=== PATIENT | male | born 1935 | race Caucasian/White ===

== ENCOUNTER → 2022-09-18 | Outpatient (CLI) | payer MEDICARE, OTHER, SELFPAY ==
[2022-09-18 16:39] LABS: Absolute Lymphocyte Count 1.32 X10^3/uL (0.83-4.51); Absolute Neutrophil Count 4.2 X10^3/uL (2.0-7.7); Basophil# 0.04 X10^3/uL; Basophil% 0.6 % (0-1); Eosinophil# 0.13 X10^3/uL; Eosinophils% 1.9 % (0-5); Hematocrit 38.7 % (40-54); Hemoglobin 11.7 g/dL (13.0-16.5); Lymphocyte # 1.32 X10^3/ul (0.83-4.51); Lymphocyte % 19.8 % (19-41); Mean Corp Hgb Conc 30.2 g/dL (32-36); Mean Corpuscular Hgb 25.4 pg (27.0-32.0); Mean Corpuscular Volume 84.1 fL (80-94); Mean Platelet Vol. 9.5 fl (6.2-12.0); Monocyte# 0.93 X10^3/uL; Monocyte% 13.9 % (0-10); NRBC Flagged by Analyzer 0 % (0-5); Neutrophil # 4.23 X10^3/uL (2.7-7.7); Neutrophil % 63.5 % (47-70); Platelet Count 289 K/mm3 (150-450); RBC Distribution Width CV 14.1 % (11.6-14.6); RBC Distribution Width SD 43.3 fl (35.1-43.9); White Blood Count 6.7 K/mm3 (4.4-11.0)
[2022-09-18 16:53] LABS: AST(SGOT) 22 U/L (15-37); Alanine Aminotransfer ALT/SGPT 30 U/L (16-61); Albumin, Serum 3.3 g/dL (3.2-5.0); Alkaline Phosphatase 78 U/L (45-117); Anion Gap 6 (5-15); BUN 23 mg/dL (7-18); BUN/Creat Ratio 18.9 RATIO (10-20); Chloride 107 mmol/L (98-107); Cholesterol 131 mg/dL (200); Creatinine, Serum 1.22 mg/dL (0.70-1.30); EST Glomerular Filtration Rate 60 mL/min (>60); Est Glom Filt Rate - Afr Amer 73 mL/min (>60); Globulin 3.4 g/dL (2.2-4.2); Glucose 134 mg/dL (74-106); High Density Lipoprotein 43 mg/dL; Potassium 4.6 mmol/L (3.5-5.1); Protein, Total 6.7 g/dL (6.4-8.2); Sodium Level 140 mmol/L (136-145); Triglycerides 112 mg/dL; Very Low Density Lipoprotein 22 mg/dL (5-40)
[2022-09-19 09:18] LABS: Ferritin 10 ng/mL (26-388); Iron 39 ug/dL (65-175); Iron Binding Capacity,Total 337 ug/dL (250-450)
== END | disposition home or self-care (01) ==
PROVIDERS: PCP Internal Medicine; Referring Provider Internal Medicine; Visit Provider Internal Medicine
DX: I25.10 Atherosclerotic heart disease of native coronary artery without angina pectoris (principal); D64.9 Anemia, unspecified; R73.9 Hyperglycemia, unspecified
CPT/HCPCS: 36415; 80053; 80061; 82728; 83036; 83540; 83550; 85025

== ENCOUNTER → 2022-10-27 | Outpatient (CLI) | payer MEDICARE, OTHER, SELFPAY ==
--- NOTE | 2022-10-27 10:39 | ECHOD_ITS ---
Reason For Study: CORONARY ARTERY DISEASE Procedure This was a 2D Doppler, Color Flow transthoracic echocardiogram. Exam performed in department. Left Ventricle Normal size and thickness. The left ventricular ejection fraction is 60 %. Right Ventricle Normal right ventricle. Atria The left and right atria are normal. Aneurysmal atrial septum. Bubble contrast study is negative for PFO/ASD. Mitral Valve Trivial mitral valve insufficiency. Tricuspid Valve Trivial tricuspid valve insufficiency. Normal pulmonary artery pressure. Aortic Valve Trisinus/trileaflet aortic valve. Mild diffuse aortic valve calcification. Mild aortic stenosis. Pulmonic Valve The pulmonic valve is not well visualized. Great Vessels Normal sized aortic root. Pericardium/Pleural No pericardial effusion. Medication 22 gauge I.V. with prn adaptor inserted into right arm. Performed a rapid injection of agitated mix of 9 cc saline and 1cc air to assess for atrial septal defect. MMode/2D Measurements & Calculations LVIDd: 3.3 cm IVSd: 1.1 cm LVOT diam: 2.2 cm LVIDs: 2.0 cm LVPWd: 0.86 cm RVDd: 4.3 cm FS: 39.1 % LVOT area: 3.7 cm2 Ao root diam: 3.5 cm LAV(MOD-bp): 57.8 ml LVAd ap4: 22.6 cm2 LAV(MOD-bp) Indexed: 30.1 ml/m2 LVLd ap4: 7.5 cm LAV(MOD-sp2): 56.3 ml EDV(MOD-sp4): 57.5 ml LAV(MOD-sp4): 57.5 ml EDV(sp4-el): 57.4 ml LVAs ap4: 12.8 cm2 LVLs ap4: 5.7 cm ESV(MOD-sp4): 24.4 ml ESV(sp4-el): 24.5 ml EF(MOD-sp4): 57.5 % EF(sp4-el): 57.4 % LVAd ap2: 22.7 cm2 SV(MOD-sp4): 33.1 ml SV(MOD-sp2): 37.5 ml LVLd ap2: 6.8 cm EDV(MOD-sp2): 58.8 ml EDV(sp2-el): 64.3 ml LVAs ap2: 12.2 cm2 LVLs ap2: 5.8 cm ESV(MOD-sp2): 21.4 ml ESV(sp2-el): 21.8 ml EF(MOD-sp2): 63.7 % SV(sp4-el): 33.0 ml LA dimension(2D): 4.2 cm LA A4 area: 19.7 cm2 RA A4 area: 11.0 cm2 Time Measurements MV dec time: 0.37 sec Doppler Measurements & Calculations MV E max anatoly: 56.4 cm/sec Lat Peak E' Anatoly: 9.8 cm/sec Med Peak E' Anatoly: 7.2 cm/sec MV A max anatoly: 92.2 cm/sec E/E' lat: 5.8 E/E' med: 7.8 MV E/A: 0.61 Ao V2 max: 184.7 cm/sec LV V1 max: 93.9 cm/sec MV dec slope: 154.3 cm/sec2 Ao max P.7 mmHg LV V1 max P.5 mmHg Ao V2 mean: 135.9 cm/sec LV V1 mean P.7 mmHg Ao mean P.2 mmHg LV V1 mean: 60.2 cm/sec Ao V2 VTI: 39.9 cm LV V1 VTI: 18.1 cm AV (velocity ratio): 0.45 BABLIR(I,D): 1.7 cm2 BALBIR(V,D): 1.9 cm2 SV(LVOT): 66.7 ml PA V2 max: 64.1 cm/sec PI end-d anatoly: 83.4 cm/sec TR max anatoly: 225.1 cm/sec TR max P.3 mmHg ECHO/Echo Complete Interpretation Summary The left ventricular ejection fraction is 60 %. Aneurysmal atrial septum. Bubble contrast study is negative for PFO/ASD. Mild aortic stenosis. Ordering Physician: Roel Millan Referring Physician: Ulices Mueller Performed By: Vandana Solis
== END | disposition home or self-care (01) ==
LOC: CVS 10:37
PROVIDERS: PCP Internal Medicine; Visit Provider Internal Medicine Cardiovascular Disease
DX: I25.10 Atherosclerotic heart disease of native coronary artery without angina pectoris (principal)
CPT/HCPCS: 93306; A4216

== ENCOUNTER 2023-05-19 14:51 | Emergency (ER) | payer OTHER, SELFPAY ==
[2023-05-19 14:52] VITALS: BP 146/79; PULSE 120; RESP 14; TEMP 36.6; O2SAT 98
[2023-05-19 14:55] VITALS: BMI 25.2
--- NOTE | 2023-05-19 15:13 | CT_ITS ---
STUDY: CT Abdomen And Pelvis W/ Contrast Injection 05/19/2023 4:16 PM REASON FOR EXAM: Male, 88 years old. Abdominal pain abd pain Individualized dose optimization techniques were used for this CT. COMPARISON: None. TECHNIQUE: CT Abdomen And Pelvis W/ Contrast Injection IV 100mL [id number] FINDINGS: There are atherosclerotic calcifications of visualized coronary arteries. The visualized portions of the heart are within normal limits. Pneumobilia. Simple appearing cyst of the right lobe of the liver. There is dilation of the common bile duct. A common bile duct stone is not seen. The CBD diameter is 16 mm. There are surgical clips in the gallbladder fossa consistent with a prior cholecystectomy. Benign-appearing cyst of the spleen. Normal pancreas. Normal bilateral adrenal glands. Non obstructive 2 mm right renal parenchymal stones. No acute findings of the left kidney. Normal visualized stomach. Normal small intestine. There are multiple colonic diverticula consistent with diverticulosis. Duodenal jejunal anastomosis. At this level there is evidence for intussusception. Presently, there is no obstruction. Series 601 image 46. The target sign visualized on series 602 image 96. The appendix is visualized and appears normal. There are calcifications of the abdominal aorta. This is consistent for atherosclerotic disease. There is NO abdominal aortic aneurysm. Vascular workup can be obtained based on clinical correlation. Normal inferior vena cava. Subcentimeter mesenteric lymph nodes. Normal urinary bladder. Rectosigmoid anastomosis. Epigastric ventral hernia containing fat. Total right hip arthroplasty. CT/Abdomen/Pelvis W IV Cont ONLY IMPRESSION: (NOT LISTED IN ORDER OF SIGNIFICANCE) Duodenal jejunal anastomosis. At this level there is evidence for intussusception. Presently, there is no obstruction. A prospective or current developing event such as an obstruction developing during the study and not visible or immediately after cannot be excluded. Surveillance may be warranted in individuals with intussusception. There are surgical clips in the gallbladder fossa consistent with a prior cholecystectomy. There is dilation of the common bile duct. A common bile duct stone is not seen. The CBD diameter is 16 mm. Other findings as above. Electronically Signed: Ti Chavez MD at 16:21 EDT ,
--- NOTE | 2023-05-19 15:16 | ED.VIS.GI ---
HPI HPI - GI History of Present Illness Chief Complaint: Abd Pain Detail of Chief Complaint: Epigastric pain. Informant: patient and family Abdominal Pain/Flank Pain Onset: Today Timing: Continuous Quality: Sharp and Stabbing Location: Epigastric Current Severity: Mild Maximum Severity: Moderate Nausea/Vomiting/Emesis GI Symptom: Positive for Nausea and Vomiting Onset: Today Severity: Mild Diarrhea/Melena/Hematochezia GI Symptom: Positive for Diarrhea; Negative for Melena or Hematochezia Stool Quality: Positive for Loose Severity: Mild Associated Symptoms Associated Symptoms: Negative for Dysuria, Frequency, Hematuria or Urgency Narrative Narrative: 88-year-old male history of A-fib on Eliquis, anemia, [place]. Has had a cholecystectomy, appendectomy and partial colectomy. States he has chronic abdominal pains worse today with associated nausea, vomiting and diarrhea. No fever. No dysuria. No melena. Even after having his gallbladder out he continues to pass stones and has had a ERCP procedures done at [facility] in [place]. He said this feels similar. Prior similar symptoms: Yes Recent Illness/Hospitalization: No PFSH PFSH Medical History Anemia Atrial fibrillation Borderline type 2 diabetes mellitus BPH (benign prostatic hyperplasia) CAD (coronary artery disease) Essential (primary) hypertension Gastric ulcer History of arthritis History of back problems History of CVA (cerebrovascular accident) History of hearing problem History of heart disease History of liver disease History of melanoma History of pneumonia Hx of carpal tunnel syndrome Hx of gallstones Hx of gastric ulcer Hx of gastroesophageal reflux (GERD) Hx of hypotension Hx of irritable bowel syndrome Hx of seasonal allergies Hx of ulcer disease Hyperglycemia Hyperlipidemia NSTEMI (non-ST elevated myocardial infarction) (~04/07/19) Peptic ulcer disease TIA (transient ischemic attack) Vitamin D deficiency Wears glasses Home Medications apixaban 5 mg tablet (Eliquis) 5 mg PO BID 08/31/22 [History Last Taken Unknown] atorvastatin 80 mg tablet 80 mg PO DAILY 08/31/22 [History Last Taken Unknown] cholecalciferol (vitamin D3) 50 mcg (2,000 unit) capsule 50 mcg PO DAILY 08/31/22 [History Last Taken Unknown] docusate sodium 100 mg capsule 100 mg PO BID 08/31/22 [History Last Taken Unknown] ezetimibe 10 mg tablet 10 mg PO DAILY 08/31/22 [History Last Taken Unknown] gabapentin 400 mg capsule 400 mg PO BID 08/31/22 [History Last Taken Unknown] hydrocodone-acetaminophen 5-325mg 5mg-325mg 1 tab PO Q6H PRN 08/31/22 [History Last Taken Unknown] mecobalamin (vitamin B12) 1,000 mcg chewable tablet 1,000 mcg PO DAILY 08/31/22 [History Last Taken Unknown] melatonin 3 mg capsule 9 mg PO HS PRN 08/31/22 [History Last Taken Unknown] metoprolol tartrate 50 mg tablet 50 mg PO BID 08/31/22 [History Last Taken Unknown] omeprazole 20 mg capsule,delayed release 20 mg PO BID 08/31/22 [History Last Taken Unknown] tamsulosin 0.4 mg capsule 0.4 mg PO BID 08/31/22 [History Last Taken Unknown] tramadol 50 mg tablet 50 mg PO Q6H PRN 08/31/22 [History Last Taken Unknown] ferrous sulfate 325 mg (65 mg iron) tablet 325 mg PO DAILY #90 tabs 09/19/22 [Rx Last Taken Unknown] Allergy/AdvReac Type Severity Reaction Status Date / Time Penicillins AdvReac Intermediate RASH Verified 05/19/23 14:52 Family History Father Myocardial infarction, Onset Age: 75 Brother Myocardial infarction, Onset Age: 55 Sister Myocardial infarction, Onset Age: 72 Surgical History History of gastric surgery History of partial gastrectomy Hx of angioplasty (~2017) Hx of appendectomy Hx of cardiac catheterization (~12/02/21) Hx of cataract removal with insertion of prosthetic lens Hx of cholecystectomy Hx of colectomy Hx of heart surgery Hx of inguinal hernia repair Hx of joint replacement Social History Smoking Status: Former smoker quit date: 01/01/1967 pack-years: 10 alcohol intake: former substance use type: does not use caffeine: Yes Type: coffee Number of servings: 2 ROS ROS ED ROS Narrative Abdominal pain. Nausea, vomiting, diarrhea. Constitutional Constitutional ED: Denies chills or fever(s) ENT ENT ED: Denies ear pain Cardiovascular Cardiovascular: Denies chest pain Respiratory/Chest Respiratory/Chest: Denies cough or dyspnea Gastrointestinal Gastrointestinal: Reports abdominal pain, diarrhea, nausea and vomiting; Denies constipation or melena Genitourinary Genitourinary ED: Denies dysuria or hematuria Musculoskeletal Musculoskeletal: Denies arthralgias Integumentary Denies abscess Neurologic Neurologic: Denies headache(s) Psychiatric Psychiatric: Denies anxiety Endocrine Endocrinology: Denies polydipsia Hematologic/Lymphatic Hematologic/Lymphatic: Denies easy bleeding Allergic/Immunologic Allergic/Immunologic ED: Denies mouth swelling EXAM Physical Exam Narrative Exam Narrative: Is a-year-old male no acute distress. Vital signs stable afebrile does not appear toxic. No distress. Son at bedside. H EENT exam mildly dry mucous membranes. Neck nontender. Lungs clear. Heart regular rate and rhythm rate about 100. No murmur. Chest wall nontender. Abdomen soft, nondistended normal bowel sounds no peritoneal signs. Mild epigastric tenderness. No Polanco sign. No McBurney's point tenderness. No signs of obstruction. No pulsatile mass. Patient moving all 4 extremities. Nontender no edema. Patient is awake and alert. Const Vital Signs: 05/19/23 14:52 05/19/23 16:27 05/19/23 18:00 Temperature 97.8 F Temperature Source Temporal Pulse Rate 120 H 94 Respiratory Rate 14 16 Blood Pressure 146/79 H 146/70 H Blood Pressure Mean 101 95 Pulse Ox 98 97 Oxygen Delivery Method Room Air Room Air 05/19/23 18:41 Temperature Temperature Source Pulse Rate 87 Respiratory Rate 22 H Blood Pressure 140/96 H Blood Pressure Mean 110 Pulse Ox 97 Oxygen Delivery Method Room Air Positive well nourished and well developed; Negative for obese, cachectic, contractures or unkempt General Appearance ED: well developed and NAD; Negative for unkempt, cachectic, contractures or pallor Nutritional Appearance: Negative for cachectic or obese HEENT Reports dry mucous membranes normocephalic and atraumatic; Negative for trauma or tenderness Mouth ED: Yes dry mucous membranes Mouth: dry mucous membranes Eyes EOMs intact bilaterally General Eye ED: Negative for pale conjunctiva or scleral icterus Neck no lymphadenopathy, supple and no JVD General: Negative for tenderness Carotids: Negative for other Lymph Lymphatic: Negative for other Resp normal respiratory effort and clear to auscultation bilaterally Effort and Inspection: Negative for respiratory distress or retractions Auscultation: Negative for rales, rhonchi or wheezes Cardio regular rate, regular rhythm, S1 normal heart sound, S2 normal heart sound and no murmurs GI non-distended and no masses; Negative for non-tender Inspection: Negative for abdominal distention Auscultation: normoactive bowel sounds Palpation: soft and tender; Negative for guarding, rigid, hepatomegaly, splenomegaly, hernia, mass, pulsatile mass or rebound tenderness present Back/Spine no CVA tenderness General Back: Negative for CVA tenderness Cervical Spine: Negative for cervical spine tenderness Thoracic Spine / Upper Back: Negative for thoracic spinal tenderness Lumbar Spine / Lower Back: Negative for lumbar spinal tenderness Extremity full ROM General Extremety ED: Negative for edema or tenderness General Extremity: Negative for edema Neuro CN's II-XII intact bilaterally and moves all extremities Sensorium / Orientation: alert, oriented to person, oriented to place and oriented to time; Negative for orientation impaired, confused, lethargic or stuporous Motor Exam: strength 5/5 throughout Psych mental status grossly normal and thought process normal Appearance: Negative for unkempt Attitude: No agitated Mood & Affect: Negative for depressed, anxious or tearful Skin no wounds General Skin Exam: Negative for jaundice or pallor Lesions: no lesions Rashes: no rashes Trauma: Negative for abrasion MDM MDM MDM Narrative Medical decision making narrative: 88-year-old male with acute on chronic abdominal pain with a history of biliary stones even identifies gallbladder removed. Screening labs and a CAT scan will be obtained. He does not have a surgical abdomen. To be treated with morphine for pain and Zofran for nausea. We were able to obtain a CAT scan of the abdomen pelvis from [facility] in [place]. The general surgeon on-call Dr. Hollie Romero reviewed that CAT scan with today's and there is no change. She is comfortable the patient being discharged home. She does not believe there is any type of intussusception at this time. Follow-up History & Record Review Discussion w/independent historian: Patient and Family Lab Data Attestation: I reviewed the patient's lab results. Lab results narrative: CBC shows a white count of 12.9. H&H 13.7 and 42. Platelets 213. Chemistries are unremarkable gap of 7. Normal BUN and creatinine of 14 and 1.2. Glucose 145. Liver enzymes are normal. Amylase and lipase are both normal at 38 and 13. Labs: Laboratory Results - last 24 hr 05/19/23 15:10 WBC 12.9 H RBC 5.04 Hgb 13.7 Hct 42.1 MCV 83.5 MCH 27.2 MCHC 32.5 RDW Std Deviation 41.6 RDW Coeff of José Miguel 13.7 Plt Count 213 MPV 9.2 Immature Gran % (Auto) 0.500 Neut % (Auto) 80.0 H Lymph % (Auto) 3.1 L Sebastian % (Auto) 12.1 H Eos % (Auto) 4.0 Baso % (Auto) 0.3 Absolute Neuts (auto) 10.3 H Absolute Lymphs (auto) 0.40 L Nucleated RBC % 0 Differential Comment SCANNED Diff Path Review May foll Sodium 138 Potassium 3.7 Chloride 107 Carbon Dioxide 24.0 Anion Gap 7 BUN 14 Creatinine 1.20 Estim Creat Clear Calc 45.63 Est GFR (MDRD) Af Amer 74 Est GFR (MDRD) Non-Af 61 BUN/Creatinine Ratio 11.7 Glucose 145 H Calcium 8.9 Total Bilirubin 0.80 AST 24 ALT 33 Alkaline Phosphatase 85 Total Protein 6.8 Albumin 3.3 Globulin 3.5 Albumin/Globulin Ratio 0.9 Amylase 38 Lipase 13 Radiography Diagnostic Testing: Clinical Impression(s) from Imaging Studies Abdomen/Pelvis CT 05/19/23 15:13 IMPRESSION: (NOT LISTED IN ORDER OF SIGNIFICANCE) Duodenal jejunal anastomosis. At this level there is evidence for intussusception. Presently, there is no obstruction. A prospective or current developing event such as an obstruction developing during the study and not visible or immediately after cannot be excluded. Surveillance may be warranted in individuals with intussusception. There are surgical clips in the gallbladder fossa consistent with a prior cholecystectomy. There is dilation of the common bile duct. A common bile duct stone is not seen. The CBD diameter is 16 mm. Other findings as above. Electronically Signed: Ti Chavez MD at 16:21 EDT , Discharge Plan Triage Chief Complaint: Abd Pain ED Provider: Daryl Roldan Dx/Rx/DC Orders Clinical Impression: History of partial gastrectomy, Hx of cholecystectomy, History of atrial fibrillation, Abdominal pain Instructions: Abdominal Pain Prescriptions: No Action Eliquis 5 mg tablet 5 mg PO BID mecobalamin (vitamin B12) 1,000 mcg tablet,chewable 1,000 mcg PO DAILY cholecalciferol (vitamin D3) 50 mcg (2,000 unit) capsule 50 mcg PO DAILY docusate sodium 100 mg capsule 100 mg PO BID omeprazole 20 mg capsule,delayed release(DR/EC) 20 mg PO BID gabapentin 400 mg capsule 400 mg PO BID tramadol 50 mg tablet 50 mg PO Q6H PRN hydrocodone-acetaminophen 5-325 mg tablet 1 tab PO Q6H PRN atorvastatin 80 mg tablet 80 mg PO DAILY melatonin 3 mg capsule 9 mg PO HS PRN tamsulosin 0.4 mg capsule 0.4 mg PO BID ezetimibe 10 mg tablet 10 mg PO DAILY metoprolol tartrate 50 mg tablet 50 mg PO BID ferrous sulfate 325 mg (65 mg iron) tablet 325 mg PO DAILY Qty: 90 1RF Primary Care Provider: Ulices Mueller Referrals: Ulices Mueller MD [Primary Care Provider] - 3-5 Days if not improving Activity Restrictions/Additional Instructions: We were able to compare your CAT scan tonight to 1 at [facility] a year ago. There is no significant change. The general surgeon is comfortable with you being discharged home with outpatient follow-up with your primary care physician as needed. Disposition Disposition: Home, Self Care
[2023-05-19] MEDS: Ondansetron 4 MG/2 ML Vial IV ×2 (15:25→20:25)
[2023-05-19] MEDS: 0.9% Normal Saline 1,000 ML 1000 ML IV (15:25)
[2023-05-19] MEDS: morphine 8 MG/ML Syringe 6 MG IV (15:26)
[2023-05-19 15:27] LABS: Absolute Neutrophil Count 10.3 X10^3/uL (2.0-7.7); Basophil# 0.04 X10^3/uL; Basophil% 0.3 % (0-1); Eosinophil# 0.52 X10^3/uL; Hematocrit 42.1 % (40-54); Hemoglobin 13.7 g/dL (13.0-16.5); Lymphocyte % 3.1 % (19-41); Mean Corp Hgb Conc 32.5 g/dL (32-36); Mean Corpuscular Hgb 27.2 pg (27.0-32.0); Mean Corpuscular Volume 83.5 fL (80-94); Mean Platelet Vol. 9.2 fl (6.2-12.0); Monocyte# 1.56 X10^3/uL; Monocyte% 12.1 % (0-10); NRBC Flagged by Analyzer 0 % (0-5); Neutrophil # 10.29 X10^3/uL (2.7-7.7); POSITIVE DIFFERENTIAL YES; Platelet Count 213 K/mm3 (150-450); RBC Distribution Width CV 13.7 % (11.6-14.6); RBC Distribution Width SD 41.6 fl (35.1-43.9); Red Blood Count 5.04 M/mm3 (4.6-6.2); White Blood Count 12.9 K/mm3 (4.4-11.0)
[2023-05-19 15:46] LABS: ALB/GLOB Ratio 0.9 RATIO (0.9-2.4); AST(SGOT) 24 U/L (15-37); Alanine Aminotransfer ALT/SGPT 33 U/L (16-61); Albumin, Serum 3.3 g/dL (3.2-5.0); Alkaline Phosphatase 85 U/L (45-117); Amylase 38 U/L (25-115); Anion Gap 7 (5-15); BUN 14 mg/dL (7-18); BUN/Creat Ratio 11.7 RATIO (10-20); Calcium,Total 8.9 mg/dL (8.5-10.1); Chloride 107 mmol/L (98-107); EST Glomerular Filtration Rate 61 mL/min (>60); Est Glom Filt Rate - Afr Amer 74 mL/min (>60); Estimated Creatinine Clearance 45.63 ml/min; Globulin 3.5 g/dL (2.2-4.2); Glucose 145 mg/dL (74-106); Lipase 13 U/L (13-75); Potassium 3.7 mmol/L (3.5-5.1); Protein, Total 6.8 g/dL (6.4-8.2); Sodium Level 138 mmol/L (136-145)
[2023-05-19 15:57] LABS: Differential Indicated SCAN CRITERIA MET
[2023-05-19 15:58] LABS: Differential Comment SCANNED
[2023-05-19 16:27] VITALS: BP 146/70
[2023-05-19 18:00] VITALS: PULSE 94; RESP 16; O2SAT 97
[2023-05-19 18:41] VITALS: BP 140/96; PULSE 87; RESP 22; O2SAT 97
[2023-05-19] MEDS: Morphine 4 MG/ML Syringe IV (20:25)
[2023-05-19 21:04] VITALS: RESP 20
[2023-05-22 15:28] LABS: Pathologist Review Reviewed
== END 2023-05-19 21:06 | disposition home or self-care (01) ==
PROVIDERS: Emergency Provider Emergency Medicine; PCP Internal Medicine; Visit Provider Emergency Medicine
DX: R10.13 Epigastric pain (principal); I48.91 Unspecified atrial fibrillation; R11.2 Nausea with vomiting, unspecified; G89.29 Other chronic pain; I10 Essential (primary) hypertension; I25.10 Atherosclerotic heart disease of native coronary artery without angina pectoris; R19.7 Diarrhea, unspecified; E78.5 Hyperlipidemia, unspecified; Z79.01 Long term (current) use of anticoagulants; Z79.899 Other long term (current) drug therapy; Z87.891 Personal history of nicotine dependence; Z90.49 Acquired absence of other specified parts of digestive tract
CPT/HCPCS: 74177; 80053; 82150; 83690; 85025; 96361; 96374; 96375; 96376; 99283; J7030; Q9967; A4216; J2405

== ENCOUNTER → 2023-07-05 | Outpatient (CLI) | payer MEDICARE, OTHER, SELFPAY ==
[2023-07-05 12:04] LABS: Cholesterol 122 mg/dL (200); High Density Lipoprotein 45 mg/dL; Triglycerides 95 mg/dL; Very Low Density Lipoprotein 19 mg/dL (5-40)
== END | disposition home or self-care (01) ==
PROVIDERS: PCP Internal Medicine; Referring Provider Internal Medicine Cardiovascular Disease; Visit Provider Internal Medicine Cardiovascular Disease
DX: E78.5 Hyperlipidemia, unspecified (principal); I25.10 Atherosclerotic heart disease of native coronary artery without angina pectoris; I35.0 Nonrheumatic aortic (valve) stenosis
CPT/HCPCS: 36415; 80061

== ENCOUNTER → 2023-12-03 | Outpatient (CLI) | payer MEDICARE, OTHER, SELFPAY ==
[2023-12-03 12:37] LABS: Absolute Lymphocyte Count 1.32 X10^3/uL (0.83-4.51); Basophil# 0.06 X10^3/uL; Basophil% 0.9 % (0-1); Eosinophils% 3.1 % (0-5); Hematocrit 41.9 % (40-54); Lymphocyte # 1.32 X10^3/ul (0.83-4.51); Lymphocyte % 20.2 % (19-41); Mean Corpuscular Hgb 26.5 pg (27.0-32.0); Mean Corpuscular Volume 85.5 fL (80-94); Mean Platelet Vol. 9.4 fl (6.2-12.0); Monocyte# 0.93 X10^3/uL; Monocyte% 14.2 % (0-10); NRBC Flagged by Analyzer 0 % (0-5); Neutrophil # 4.02 X10^3/uL (2.7-7.7); Neutrophil % 61.3 % (47-70); Platelet Count 285 K/mm3 (150-450); RBC Distribution Width CV 14.8 % (11.6-14.6); RBC Distribution Width SD 46.4 fl (35.1-43.9); White Blood Count 6.6 K/mm3 (4.4-11.0)
[2023-12-03 12:43] LABS: AST(SGOT) 16 U/L (15-37); Alanine Aminotransfer ALT/SGPT 28 U/L (16-61); Albumin, Serum 3.4 g/dL (3.2-5.0); Alkaline Phosphatase 85 U/L (45-117); Anion Gap 3 (5-15); BUN 16 mg/dL (7-18); BUN/Creat Ratio 13.6 RATIO (10-20); Chloride 109 mmol/L (98-107); Cholesterol 176 mg/dL (200); Creatinine, Serum 1.18 mg/dL (0.70-1.30); EST Glomerular Filtration Rate 62 mL/min (>60); Est Glom Filt Rate - Afr Amer 75 mL/min (>60); Globulin 3.4 g/dL (2.2-4.2); Glucose 99 mg/dL (74-106); High Density Lipoprotein 48 mg/dL; PSA,Total - Annual Screen 0.62 ng/mL (0.00-4.00); Potassium 4.5 mmol/L (3.5-5.1); Protein, Total 6.8 g/dL (6.4-8.2); Sodium Level 140 mmol/L (136-145); Triglycerides 146 mg/dL; Very Low Density Lipoprotein 29 mg/dL (5-40)
== END | disposition home or self-care (01) ==
LOC: BIMLAB 10:47
PROVIDERS: PCP Internal Medicine; Referring Provider Internal Medicine; Visit Provider Internal Medicine
DX: I25.10 Atherosclerotic heart disease of native coronary artery without angina pectoris (principal); I10 Essential (primary) hypertension; N40.0 Benign prostatic hyperplasia without lower urinary tract symptoms
CPT/HCPCS: 36415; 80053; 80061; 82248; 84153; 85025; G0103

== ENCOUNTER 2024-01-02 16:11 | Inpatient (IN) | payer OTHER, SELFPAY ==
[2023-12-27 14:13] LABS: Hemoglobin A1c 5.7 % (3.8-5.6)
[2024-01-02] VITALS (31 sets, daily range): BP systolic 84–189; BP diastolic 58–111; PULSE 87–142; RESP 16–37; TEMP 36.3–45.5; O2SAT 92–100; BMI 24.3; BMI 24.9
--- NOTE | 2024-01-02 | HERN_PTH ---
PATIENT: DESIREE CALIXTO LOC: [id number] U#:[id number] AGE/SX: 88/M ROOM: OK318 RE01/03/[address]: Dr. Bob Neal MD : [id number] BED: 1 DIS: 01/04/2024 SPEC #: [id number] RECD: 01/02/24 18:06 STATUS: RAYSHAWN RE #: [id number] PACHECO: 01/02/24 00:[address]: Bob Neal DEPT: SURGICAL PATHOLOGY RECD BY: Lawson White ENTERED: 01/03/24 10:07 SP TYPE: Hernia OTHR DR: MD Dr. Shahriar Hernandez MD Dr. Derek Brown, DO Dr. Eric Jopperi, DO Dr. Efewongbe Oleghe, MD Dr. Gautam Baskaran, MD Dr. Yordanos Habtegebriel, MD Dr. Hemant Dand, MD Dr. Kimber Foust, MD Dr. Lamia Aljundi, MD Dr. Pavan Irukulla, MD Dr. Saad Farooqi, MD Dr. Vikram Anand, MD Dr. William Haden, MD Tissues: A - LIPOMA OF CORD B - HERNIA Procedures: Surgery Specimen Level II Surgery Specimen Level III HEADER OPERATION: Hernia. Open inguinal with mesh PRE-OP DIAGNOSIS: Left inguinal hernia, incisional hernia TISSUE SUBMITTED: A- Left cord lipoma, B- Left inguinal hernia sac MICROSCOPIC DIAGNOSIS A. Left cord lipoma, excision; Mature adipose tissue, consistent with lipoma. B. Left inguinal hernia sac; A piece of fibroadipose and fibroconnective tissue, consistent with hernia sac. / 01/04/2024 MICROSCOPIC DESCRIPTION Slides are reviewed. GROSS DESCRIPTION A. Received in fixative is one container labeled with the patient's name and designated Left cord lipoma. The specimen consists of an irregular fragment pacheco-yellow fatty tissue measuring 4.0x4.0x1.0cm. Serial sections reveal homogeneous yellow cut surfaces. P[employer] Worker sections are submitted in one cassette. B. Received in fixative is one container labeled with the patient's name and designated Left inguinal hernia sac. The specimen consists of irregular fragment of yellow-pacheco fibrofatty tissue measuring 5.5x2.0x0.3cm. Serial sections do not reveal mass lesions. Poultry Process Worker sections are submitted in one cassette. / 01/03/2024 TC:5 CPT: 67406,85655
[2024-01-02] MEDS: Lactated Ringers 1,000 ML 15 ML IV (12:34)
--- NOTE | 2024-01-02 13:55 | PCM.HP.BLA ---
History and Physical Date of Admission: 01/02/24 Date of Service: 12/14/23 MR#: [id number] Acct: [id number] Name: DESIREE CALIXTO Rep #: [id number] : 1935 Provider: Dr. Bob Neal MD Age/Sex: 88/M Location: 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: No Is patient in pain?: Yes (left groin) Allergies Penicillins Adverse Reaction (Intermediate, Verified 12/14/23 13:22) RASH Medications apixaban 5 mg tablet (Eliquis) 5 mg PO BID 08/31/22 [History Confirmed 12/14/23] atorvastatin 80 mg tablet 80 mg PO DAILY 08/31/22 [History Confirmed 12/14/23] cholecalciferol (vitamin D3) 50 mcg (2,000 unit) capsule 50 mcg PO DAILY 08/31/22 [History Confirmed 12/14/23] docusate sodium 100 mg capsule 100 mg PO BID 08/31/22 [History Confirmed 12/14/23] ezetimibe 10 mg tablet 10 mg PO DAILY 08/31/22 [History Confirmed 12/14/23] gabapentin 400 mg capsule 400 mg PO BID 08/31/22 [History Confirmed 12/14/23] hydrocodone-acetaminophen 5-325mg 5mg-325mg 1 tab PO Q6H PRN 08/31/22 [History Confirmed 12/14/23] mecobalamin (vitamin B12) 1,000 mcg chewable tablet 1,000 mcg PO DAILY 08/31/22 [History Confirmed 12/14/23] melatonin 3 mg capsule 9 mg PO HS PRN 08/31/22 [History Confirmed 12/14/23] metoprolol tartrate 50 mg tablet 50 mg PO BID 08/31/22 [History Confirmed 12/14/23] omeprazole 20 mg capsule,delayed release 20 mg PO BID 08/31/22 [History Confirmed 12/14/23] tamsulosin 0.4 mg capsule 0.4 mg PO BID 08/31/22 [History Confirmed 12/14/23] tramadol 50 mg tablet 50 mg PO Q6H PRN 08/31/22 [History Confirmed 12/14/23] ferrous sulfate 325 mg (65 mg iron) tablet 325 mg PO DAILY #90 tabs 09/19/22 [Rx Confirmed 12/14/23] PFSH Medical History Anemia Atrial fibrillation Borderline type 2 diabetes mellitus BPH (benign prostatic hyperplasia) CAD (coronary artery disease) Chronic nasal discharge Essential (primary) hypertension Gastric ulcer Grief reaction History of arthritis History of back problems History of CVA (cerebrovascular accident) History of hearing problem History of heart disease History of liver disease History of melanoma History of pneumonia Hx of carpal tunnel syndrome Hx of gallstones Hx of gastric ulcer Hx of gastroesophageal reflux (GERD) Hx of hypotension Hx of irritable bowel syndrome Hx of seasonal allergies Hx of ulcer disease Hyperglycemia Hyperlipidemia Left inguinal hernia NSTEMI (non-ST elevated myocardial infarction) (~04/07/19) Peptic ulcer disease TIA (transient ischemic attack) Vitamin D deficiency Wears glasses Surgical History History of gastric surgery History of partial gastrectomy Hx of angioplasty (~2017) Hx of appendectomy Hx of cardiac catheterization (~12/02/21) Hx of cataract removal with insertion of prosthetic lens Hx of cholecystectomy Hx of colectomy Hx of heart surgery Hx of inguinal hernia repair Hx of joint replacement Family History Father Myocardial infarction, Onset Age: 75Brother Myocardial infarction, Onset Age: 55Sister Myocardial infarction, Onset Age: 72 Social History Smoking Status: Former smoker quit date: 01/01/1967 pack-years: 10 alcohol intake: former substance use type: does not use caffeine: Yes Type: coffee Number of servings: 2 HPI HPI HPI: Patient is a 88-year-old male who presents for evaluation of a left inguinal hernia. He is referred from Dr Mueller. He is also the of the now late Mrs. Jennifer Calixto (a former patient). This finding was first noticed by Mr. Cailxto years ago. Patient is not able to recall how this occurred, but does relate to a long history of heavy lifting as he used to work for the railroad and drilled water wells lifting more than I should have. However, he reports that it now manifests as a big knot. He shares that it previously was the size of a golf ball but has grown to the size of a baseball. He states that walking for a while will lead to become quite tender to the point that he must sit down. He does note that occasionally will become firm to the touch. He does not have any experience of it impacting his bowels and reports that he does have regular bowel movements thanks to daily stool softener usage. Patient has a remote personal history of smoking and quit back in 1966. Pertinent surgical history includes: Partial gastrectomy with intestinal bypass for a gastric ulcer, open appendectomy, open cholecystectomy, open segmental colectomy (for bowel blockage), and open right inguinal herniorrhaphy. Mr. Calixto reports that following his cholecystectomy he had multiple episodes of choledocholithiasis and in and 2021 with stone extraction and sphincterotomy repair. He reports some bleeding complication with sphincterotomy and states that he declined further intervention for this bleeding. He shares that he has had no further trouble since. It is of note that patient underwent CT imaging of the abdomen pelvis May 19, 2023 and was noted to have pneumobilia at that time. This was reviewed against imaging patient had previously through [facility] (where he underwent ERCP) and was determined to be stable. Patient has a complex cardiac history inclusive of atrial fibrillation, coronary artery disease with NSTEMI status post PCI. He is presently on Eliquis per cardiology. He denies any recent shortness of breath or deterioration of his physical stamina. ROS General General: Yes fatigue; No weight change, appetite, colon cancer, breast cancer or weakness HEENT HEENT: No difficulty swallowing, eye injury, eye surgery, swollen glands or hoarseness Endo Endocrine: No thyroid disease, diabetes mellitus, thyroid cancer, Hair loss, heat intolerance or cold intolerance Skin Skin: No rash or changing moles Breast Breast: No left breast lump, right breast lump, nipple discharge, breast pain, abnormal mammogram, abnormal US or breast enlargement Musc Musculoskeletal: Yes arthritis; No back problems, rheumatoid arthritis, gout or joint pain Cardio Cardiovascular: Yes heart stent; No murmur, pacemaker, heart disease, atrial fibrillation, high blood pressure, heart attack, palpitations, shortness of breat with exertion or chest pain Psych Psychiatric: No depression, anxiety or hearing voices Resp Respiratory: No shortness of breath, No sleep apnea, No cough, No COPD, No asthma, No emphysema and No wheezing Gastro Gastrointestinal: Yes abdominal pain, No nausea or vomiting, No diarrhea, No constipation, No blood in stool, Yes acid reflux, No hemorrhoids, Yes ulcers, No gallbladder problem and No black,tarry stools Jose Hematologic: Yes blood thinners, No blood disorders, No bleeding, No anemia and No blood clots Neuro Neurologic: No system reviewed and no additional complaints, except as documented, No as per HPI, No abnormal gait, No abnormal hearing, No abnormal movements, No abnormal speech, No behavioral changes, No burning sensations, No confusion, No convulsions, No disequilibrium, No dizziness, No localized weakness, No frequent falls, No headache(s), No lack of coordination, No loss of vision, No memory loss, No numbness, No other visual disturbances, No radicular pain, No restless legs, No sensory deficit, No syncope, No tingling, No tremor(s), No weakness and No other Exam Const General: cooperative Orientation: alert, awake and oriented x3 Other: Patient clearly grieving and becomes tearful talking about Resp Effort & Inspection: normal respiratory effort GI Other: Numerous scars including a midline laparotomy that exists above the umbilicus and below the umbilicus, large subcostal incision, and multiple right lower quadrant incisions. There is a bulging incisional hernia defect in the upper abdomen that is soft and reducible but tender to the touch. It appears to be less than 2 cm fascial defect Other: Bilaterally descended testicles. Tenderness over both external rings. Palpable direct hernia defect on the left. Assessment and Plan Assessment and Plan (1) Left inguinal hernia: Status: Chronic Comment: Patient with a chronic left inguinal hernia that has grown in both size and symptom. Patient describes debilitating discomfort that requires him to stop all activity when he experiences the pain and tenderness. Per patient's exam and CT imaging from May 2023 this appears to be a direct inguinal hernia defect containing fatty tissue. Patient denies any effect to his bowels. Given his significant cardiovascular and surgical risks I have advised proceeding with an open inguinal hernia repair with mesh. Procedure was described in detail. Patient has limited social support and requests overnight observation as he is unable to have someone with him reliably following the surgery. We will look for clearance from cardiology to hold patient's Eliquis preop as well as any further advising they would have to optimize patient's cardiovascular fitness preop. Plan: ? Left inguinal hernia repair with mesh given symptoms and growth provided we receive cardiac clearance. Would plan to hold Eliquis 48 hours pre and post procedure. Postoperatively with plan to admit patient for overnight observation and then discharged to home with family (2) Incisional hernia: Status: Acute Comment: Patient with minimally symptomatic incisional hernia. This does appear to be reducible on exam. Given patient's complex cardiac history I would not want to prolong his operative time. Further, his complex past surgical history makes any transperitoneal approach risky. I simply advised the watchful waiting for now. If it would become more symptomatic there would be a possibility of approaching this simply be a limited dissection from above. Plan: ? Watchful waiting for now I have examined the patient and the H&P has been reviewed. There are no clinical changes since date of exam. Patient confirms that he held his Eliquis appropriately for today's procedure and did so beginning 12/30/2023. Both operative and postoperative expectations were discussed with patient and his son. We are tentatively planning for postoperative observational stay with discharge 01/03/2024. Patient is counseled to plan to resume his anticoagulation 48 hours post procedure. All other questions were answered. Will now proceed to the operating room for open left inguinal hernia repair with mesh as discussed in greater detail above
[2024-01-02] MEDS: Clindamycin 900 MG/50 ML BAG 75 MG IV (14:04)
[2024-01-02] MEDS: Bupiv/Epi 0.25% 30 ML Vial (16:01)
--- NOTE | 2024-01-02 16:05 | OP.PCM_ITS ---
Report of Operation Date of Procedure: 01/02/24 Pre-Operative Diagnosis: Left inguinal hernia Post-Operative Diagnosis: Left indirect inguinal hernia Surgery/Procedure Performed:: Open (Nhan type) inguinal hernia repair with mesh Description of Surgical Findings:: ? Intact inguinal canal floor ? Moderately large indirect inguinal hernia with adjacent cord lipoma Surgeon: Bob Neal exchange architect: Janey Jones Type of Anesthesia: General/Supplemental Anesthesiologist: Jorge Alberto Perez Specimen's removed: 1. Hernia sac 2. Cord lipoma Estimated Blood Loss (mL): 5 Description of Procedure: After appropriate identification in the preoperative holding area the patient was brought to the operating room where he was positioned supine on the operating room table. Preoperative antibiotics were administered and SCDs were placed lower extremities. They were then administered sedation by anesthesia. The abdomen and groin area were prepped (including clipping of all hair in the vicinity) and draped. A formal timeout was conducted to confirm both patient and procedure. Procedure was begun by marking out the pubic tubercle and the anterior superior iliac spine. An incision line was planned between these 2 points favoring the tubercle. Then a local block was produced with quarter percent bupivacaine at the anterior superior iliac spine and along the planned incision line. This oblique incision (measuring approximately 8 cm in length) was made using a scalpel. It was deepened down through camper's and Charles's fascia with the use of electrocautery. Any bleeding was addressed as we proceeded. This brought us down to the level of the external oblique aponeurosis. Again, local anesthetic was used directly beneath this layer to block the ilioinguinal nerve. The aponeurosis was opened in the direction of its fibers medially and laterally. Medially, the layer was opened all the way through the external ring. Directly beneath this the ilioinguinal nerve could be seen atop the cord structures. This was dissected free and excluded from the surgical site with the external oblique. I then used a combination of blunt and sharp dissection to free the cord from the internal oblique fibers superiorly and the shelving edge/inguinal ligament inferiorly. Once the cord was fully encircled it was placed in a Eddie drain. With the cord retracted laterally I was able to visualize the floor which appeared to be intact but there was a slight defect medially in the region of the conjoined tendon. I then began an exploration of the tissue included with the cord structures by bluntly removing the cremasteric fibers from the outer portion. A medium-size cord lipoma was found laterally and medially/deeply I encountered the bilayer of a moderate- sized indirect hernia sac. Care was taken to first isolate the cord lipoma off of the underlying structures back towards the area of the internal ring. Secondly I isolated the indirect hernia sac by elevating it and gently pushing away the cord structures and adherent cremasteric fibers. At 1 point patient coughed under sedation and we were able to see some bowel entered the sac before the abdominal pressure returned to normal and were able to proceed with the rest of the operation. I then carefully opened the sac and split it longitudinally down to the opening at the internal ring. Here the redundant sac material was clamped at its base and removed with electrocautery. The proximal extent of the sac was ligated and a stick tie fashion using 3-0 Vicryl suture and reduced back towards the peritoneum. This same process was used for the patient's cord lipom a. Both specimens were passed off the operative field for pathology. Next, to exclude the protruding fatty tissue medially I performed a single [id number] suture between the internal oblique and the conjoined tendon tissue that appeared to have using a 2-0 Ethibond suture. I then called for a 10 x 4-1/2 cm Bard keyhole mesh and first tacked to the pubic tubercle medially. I then serially tacked it along the inguinal ligament inferiorly with additional 2-0 Ethibond. The same procedure was then used to tack the mesh to the conjoined tendon and the internal oblique superiorly. Lastly the tails of the mesh were tied and tacked about the spermatic cord structures laterally such that there was a fingertip opening adjacent to the cord to allow for continued mobility. The tails of the mesh were then tucked under the remaining external oblique upon neurosis laterally. The course of the ilioinguinal nerve was reexamined relative to the mesh and it appeared that medially the 2 were very close show I perform some very limited sharp dissection and confirmed that at that point the nerve coursed away from the mesh. The surgical area was then reinspected and we found the mesh to be lying flatly in the floor of the inguinal canal. The cavity was also hemostatic. Therefore, I proceeded with closure of the external oblique fibers in a running fashion using 3-0 Vicryl. I then closed Charles's fascia with another 3-0 Vicryl. Lastly I performed a series of deep dermal, interrupted sutures to approximate the skin edges before running a 4-0 Monocryl in a subcuticular fashion. Dermabond was applied as a dressing. A quick check was made of the patient's left testicle to be sure it was in a natural position within the left hemiscrotum. Patient tolerated the procedure well and was allowed to awaken from his anesthetic. He was then transferred to PACU for ongoing recovery. Grafts/Implants Used: Bard mesh keyhole 10 x 4.5 cm LOT [id number] reference [id number] Complications None Surgeon Admit VTE Documentation VTE Mechan Device Prophylaxis: SCD's Procedures Digestive 40xxx-49xxx: 67016 Prp i/iraida init reduc >5 yr
--- NOTE | 2024-01-02 16:10 | DCINST_ITS ---
Discharge Instructions Diet Discharge Diet: No restrictions Activity Discharge Activity: May Not Drive (While taking narcotic pain medication) and May Shower May shower in (days): 2 Ice area for (Minutes): 20 Lifting Restrictions: No lifting greater than 10 pounds for the next 5 weeks Dressing / Incision Call your doctor if your incision/area has: Continuous Slow Oozing, Increased Pain/ Swelling, Increased Redness, Foul Smelling Discharge and Swelling at the incision site Call your doctor if you observe: Fever of 101 or Higher, Inability to urinate and Inability to have a bowel movement Cleanse incision/area with: Soap & Water and Keep Dressing Clean & Dry Follow Up Care Please Follow Up With: Bob Neal MD When: 1 week postop Test Results: Test results from this visit will be discussed in further detail at your follow- up appointment, if applicable. Discharge Plan Admission Primary Reason for Your Visit: Left inguinal hernia repair Attending Provider: Bob Neal Primary Care Provider: Ulices Mueller Discharge Orders/Prescriptions Prescriptions: No Action Eliquis 5 mg tablet 5 mg PO BID mecobalamin (vitamin B12) 1,000 mcg tablet,chewable 1,000 mcg PO DAILY cholecalciferol (vitamin D3) 50 mcg (2,000 unit) capsule 50 mcg PO DAILY docusate sodium 100 mg capsule 100 mg PO BID omeprazole 20 mg capsule,delayed release(DR/EC) 20 mg PO BID gabapentin 400 mg capsule 400 mg PO BID tramadol 50 mg tablet 50 mg PO Q6H PRN (Reason: pain) hydrocodone-acetaminophen 5-325 mg tablet 1 tab PO Q6H PRN (Reason: pain) atorvastatin 80 mg tablet 80 mg PO DAILY melatonin 3 mg capsule 9 mg PO HS PRN (Reason: sleep) tamsulosin 0.4 mg capsule 0.4 mg PO BID ezetimibe 10 mg tablet 10 mg PO DAILY metoprolol tartrate 50 mg tablet 50 mg PO BID ferrous sulfate 325 mg (65 mg iron) tablet 325 mg PO DAILY Qty: 90 1RF mupirocin 2 % ointment 1 applic topical BID 7 Days Qty: 15 0RF Rx Instructions: apply to bilateral nares wiht q-tip Referrals / Follow Up: Ulices Mueller MD [Primary Care Provider] - Disposition Disposition (needs filled in before D/C Order can be placed): Home, Self Care
--- NOTE | 2024-01-02 18:14 | EKG12_ITS ---
Test Reason : high hr Blood Pressure : / mmHG Vent. Rate : 131 BPM Atrial Rate : 131 BPM P-R Int : 162 ms QRS Dur : 076 ms QT Int : 274 ms P-R-T Axes : 049 -31 048 degrees QTc Int : 404 ms Sinus tachycardia Left axis deviation Nonspecific ST abnormality Abnormal ECG No previous ECGs available BASELINE ARTIFACT Confirmed by Bob Shirley ([id number]), school photograph editor ELIAS LOVE ([id number]) on 01/04/2024 8:39:02 AM Referred By: Bob Neal Confirmed By:Bob Shirley
--- NOTE | 2024-01-02 18:19 | PCM.CONS.GEN ---
Assessment & Plan Assessment/Plan (1) Left inguinal hernia: (2) Postoperative nausea and vomiting: (3) Hypoxia: PLAN: Plan Patient is an 88-year-old male who presented to [facility] on 01/02/2024 for planned inguinal hernia repair. Medicine consulted postoperatively for medical management. 1. Left inguinal hernia s/p open repair with mesh ? General surgery primary. No intraoperative complications noted. Further management per surgery. 2. Postoperative nausea/vomiting, fever/chills, sinus tachycardia and hypertension ? See HPI for further details. Unclear etiology at this time. Had some degree of concern for a neuroleptic malignant syndrome type picture, given the timing of onset shortly after his procedure. Reglan was given after the procedure but no other medications will be culprits. Not on any home medications that could cause NMS. On tramadol at home, not on any other serotonergic agents so very low concern for serotonin syndrome. Could be the development of a new infection with unclear source. ? Given 1 dose of IV Ativan 0.5 mg in PACU with some improvement but notably did have more somnolence with this. ? Monitor closely in the ICU. Treated empirically with IV cefepime and IV vancomycin for now. Blood cultures ordered. Specifications Checker consulted. 3. Acute hypoxia, concern for mild aspiration versus mild volume overload ? Initially presumed to be mild postoperative hypoxia. Chest x-ray in the PACU with possible mild volume overload, no evidence of consolidation noted. Do have concern that patient may have had small aspiration events with his several episodes of vomiting in PACU with altered mentation. ? Requiring 4 L nasal cannula currently to maintain oxygen saturations in the low to mid 90s. ? Wean supplemental oxygen as able. Hold on further IV fluids and patient may need spot doses of diuretics going forward. Monitor for signs of aspiration pneumonia. 4. Elevated lactic acid ? Lactic acid 4.6 postoperatively. Normal acid-base status on BMP. Suspect secondary to postoperative issues as noted above. Holding on further fluids for now as noted above, trend lactate. 5. History of multiple abdominal surgeries ? History of multiple surgeries including partial gastrectomy, cholecystectomy, colectomy (unclear on how much of colon removed). General surgery following as above. 6. History of CAD s/p CABG, mild aortic stenosis ? Follows with outpatient cardiology, last office visit in 06/2023. Last echo in 11/06 showed EF 60%, aneurysmal atrial septum, mild aortic stenosis, otherwise no abnormalities. History of triple-vessel CABG in 2019. Cath in November 2021 revealed patent grafts. ? Home Eliquis held for procedure, defer to surgery on when to resume this. Okay to continue home Lopressor, atorvastatin and Zetia. Chronic medical conditions: ? Chronic back pain with neuropathy: Okay to continue home gabapentin. Hold home tramadol as needed. ? Hypertension: Continue home Lopressor. ? Hyperlipidemia: Continue home atorvastatin and Zetia. ? BPH with obstructive symptoms: Continue home Flomax. ? GERD: Continue home PPI. ? Insomnia: Continue home melatonin. ? A-fib on Eliquis: Continue home Lopressor, holding Eliquis as noted above. ? History of total hip arthroplasty DVT prophylaxis: Per orthopedics Total clinical time spent by myself addressing the patient's medical issues, reviewing all the data, and collaborating with patient's care team: 50 minutes. HPI Consult Data Date of Consult: 01/02/24 HPI Narrative Reason for Consultation: Postoperative medical management HPI Narrative: DESIREE CALIXTO, is a 88 M who presented to [facility] on 01/02/2024 for planned inguinal hernia repair with Dr. Neal. Medicine consulted postoperatively for medical management. Dr. Neal called me earlier this evening while the patient was in the PACU to discuss the patient's status. Patient came in from home this morning and felt well, and plan was to discharge patient home after his hernia repair procedure today. However, postoperatively the patient began to have significant nausea and vomiting, sinus tachycardia to the 140s, significant hypertension and fever up to 103F. I went down to the patient's bedside in the PACU shortly after that to evaluate the patient. Dr. Neal was also the bedside. Patient was sitting up in bed and had his eyes closed, but he was opening his eyes on command and answering questions with short, soft appropriate responses. He felt warm to the touch and was actively shivering when I first saw him. His heart rate was sustaining in the 130s and EKG showed sinus tachycardia. His blood pressures were consistently in the 170s to 180s systolic and 100s to 110s diastolic during our encounter. Bedside nurse checked his forehead temperature multiple times and he was consistently febrile to 102-103F. Patient stated that he generally felt sick and felt feverish with active rigors. He was also intermittently coughing with a wet sounding cough, and he did have an episode of fairly significant emesis while I was at the bedside. Discussed with Dr. Neal at the bedside as well as the anesthesiologist for his case. Patient has a history of multiple abdominal procedures and there was no postoperative complications like this noted in the past. Patient was intubated for the procedure and anesthesia noted that he had been given propofol and fentanyl for sedation. No neuromuscular blockade was used and no other sedation agents were administered. Patient was given doses of IV Zofran, IV Benadryl 50 mg and IV Reglan 10 mg in PACU to try to help with his nausea and vomiting. Notably, it appeared that the patient was already beginning to have some tachycardia and hypertension before he was given the Benadryl and the Reglan. However, given the odd presentation I did have some concern for an NMS type presentation. We opted to give a dose of IV Ativan 0.5 mg x 1 at around 6:30 PM. About 15 minutes later, noted that the patient shivering had subsided and his heart rate was down to the 120s, and his blood pressure had also decreased to the 150s systolic. Patient was more somnolent and not answering any questions for us, but he was protecting his airway and did not appear to be in any acute distress. Obtained a chest x-ray given his hypoxia and wet cough, and on my wet read he had mild pulmonary vascular congestion but otherwise no consolidations or other abnormalities noted. Given his presentation, discussed with wheel shop supervisor and transferred the patient up to the ICU. Initiated the patient on vancomycin and IV cefepime for broad coverage and blood cultures will be obtained. [facility] Medical History (Updated 01/02/24 @ 21:[address] Nick Morales, ) Ambulates with cane Anemia Anxiety Aortic stenosis Arthritis Atrial fibrillation Back pain Bladder disease Borderline type 2 diabetes mellitus BPH (benign prostatic hyperplasia) CAD (coronary artery disease) Cancer Cardiology follow-up encounter Cardiology follow-up encounter Chronic nasal discharge Dietary restriction Essential (primary) hypertension Gastric ulcer Grief reaction Hepatitis History of arthritis History of atrial fibrillation History of back problems History of CVA (cerebrovascular accident) History of echocardiogram History of edema History of hearing problem History of heart disease History of hiatal hernia History of liver disease History of melanoma History of pneumonia History of stress test Hx of carpal tunnel syndrome Hx of gallstones Hx of gastric ulcer Hx of gastroesophageal reflux (GERD) Hx of hypotension Hx of irritable bowel syndrome Hx of seasonal allergies Hx of ulcer disease Hyperglycemia Hyperlipidemia Incisional hernia Left inguinal hernia Low iron Non-smoker NSTEMI (non-ST elevated myocardial infarction) (~04/07/19) Paroxysmal atrial fibrillation Peptic ulcer disease Prostate disease Shortness of breath on exertion TIA (transient ischemic attack) Vitamin D deficiency Wears glasses Wears glasses Wears hearing aid Home Medications apixaban 5 mg tablet (Eliquis) 5 mg PO BID 08/31/22 [History Last Taken 12/30/23] atorvastatin 80 mg tablet 80 mg PO DAILY 08/31/22 [History Last Taken 01/01/24] cholecalciferol (vitamin D3) 50 mcg (2,000 unit) capsule 50 mcg PO DAILY 08/31/22 [History Last Taken 01/01/24] docusate sodium 100 mg capsule 100 mg PO BID 08/31/22 [History Last Taken 01/01/24] ezetimibe 10 mg tablet 10 mg PO DAILY 08/31/22 [History Last Taken 01/01/24] gabapentin 400 mg capsule 400 mg PO BID 08/31/22 [History Last Taken 01/02/24] hydrocodone-acetaminophen 5-325mg 5mg-325mg 1 tab PO Q6H PRN pain 08/31/22 [History Last Taken Unknown] mecobalamin (vitamin B12) 1,000 mcg chewable tablet 1,000 mcg PO DAILY 08/31/22 [History Last Taken 01/01/24] melatonin 3 mg capsule 9 mg PO HS PRN sleep 08/31/22 [History Last Taken Unknown] metoprolol tartrate 50 mg tablet 50 mg PO BID 08/31/22 [History Last Taken 01/02/24] omeprazole 20 mg capsule,delayed release 20 mg PO BID 08/31/22 [History Last Taken 01/02/24] tamsulosin 0.4 mg capsule 0.4 mg PO BID 08/31/22 [History Last Taken 01/01/24] tramadol 50 mg tablet 50 mg PO Q6H PRN pain 08/31/22 [History Last Taken Unknown] ferrous sulfate 325 mg (65 mg iron) tablet 325 mg PO DAILY #90 tabs 09/19/22 [Rx Last Taken 01/01/24] mupirocin 2 % topical ointment 1 applic topical BID 1 week #15 grams 12/31/23 [Rx Last Taken Unknown] Allergy/AdvReac Type Severity Reaction Status Date / Time Penicillins Allergy Intermediate RASH Verified 01/02/24 12:34 Family History Father Myocardial infarction, Onset Age: 75 Brother Myocardial infarction, Onset Age: 55 Sister Myocardial infarction, Onset Age: 72 Surgical History (Updated 12/26/23 @ 10:21 by Johana Coleman) History of gastric surgery History of partial gastrectomy Hx of angioplasty (~2017) Hx of appendectomy Hx of cardiac catheterization (~12/02/21) Hx of cataract removal with insertion of prosthetic lens Hx of cholecystectomy Hx of colectomy Hx of colonoscopy Hx of esophagogastroduodenoscopy Hx of heart surgery Hx of inguinal hernia repair Hx of joint replacement Hx of total hip arthroplasty Social History Smoking Status: Never smoker alcohol intake: former substance use type: does not use caffeine: Yes Type: coffee Number of servings: 2 ROS Review of Systems ROS Unobtainable: due to mental status Physical Exam Const alert Constitutional Narrative: Elderly male, sitting up in bed but appears quite ill, active rigors noted, opening his eyes and responding to questions with short, soft appropriate responses. General Appearance: cooperative HEENT normocephalic, head/scalp atraumatic, hearing grossly normal bilaterally and nasal mucous membranes and turbinates normal Eyes PERRL, EOMs intact bilaterally and conjunctivae normal Neck full ROM Chest inspection of chest normal Resp Resp Narrative: Mildly increased work of breathing noted on 4 L nasal cannula. Mild crackles noted bilaterally worse on the left, otherwise good air movement throughout, no wheezing noted. Cardio no murmurs and peripheral pulses 2+ throughout Cardio Narrative: Sinus tachycardia. GI normal to inspection, nondistended, normoactive bowel sounds, soft to palpation, non-tender and non-distended Back/Spine normal ROM Extremity normal to inspection and no pedal edema Skin no rashes or lesions noted Neuro moves all extremities and no focal motor deficits Lab / Micro Data 01/02/24 20:40 01/02/24 18:47 Charges/Coding Visit Charges Inpatient E&M: 30332 Subs Hosp L3
[2024-01-02] MEDS: 0.9% Normal Saline (1000mL) 1,000 ML 50 ML IV (18:30)
[2024-01-02] MEDS: LORazepam 2 MG/ML Syringe 0.5 MG IV (18:38)
--- NOTE | 2024-01-02 18:45 | RAD_ITS ---
STUDY: X-RAY CHEST REASON FOR EXAM: Male, 88 years old. hypoxia TECHNIQUE: AP portable COMPARISON: None. FINDINGS: Left lower lobe atelectasis or infiltrate. Elevated right hemidiaphragm and mild right basilar atelectasis... There is no demonstrated pleural abnormality. Postop change status post median sternotomy. Heart is prominent.. Normal mediastinum and lesa. Normal visualized pulmonary arteries. Calcified aortic arch and descending thoracic aorta. Dorsal spine and shoulders demonstrate degenerative change. Normal visualized ribs, and clavicles. There is no demonstrated abnormality of the visualized soft tissue structures of the upper abdomen. RAD/Chest 1 View (Portable) IMPRESSION: Left lower lobe atelectasis or infiltrate and mild right basilar atelectasis.. Postop change in the right upper quadrant of the abdomen Electronically Signed: Tejinder Cline MD at 20:14 EDT ,
[2024-01-02 19:20] LABS: ALB/GLOB Ratio 1.1 RATIO (0.9-2.4); AST(SGOT) 20 U/L (15-37); Alanine Aminotransfer ALT/SGPT 25 U/L (16-61); Albumin, Serum 3.6 g/dL (3.2-5.0); Alkaline Phosphatase 84 U/L (45-117); Anion Gap 9 (5-15); BUN 15 mg/dL (7-18); BUN/Creat Ratio 12.1 RATIO (10-20); Calcium,Total 8.6 mg/dL (8.5-10.1); Chloride 106 mmol/L (98-107); Creatinine, Serum 1.24 mg/dL (0.70-1.30); EST Glomerular Filtration Rate 59 mL/min (>60); Est Glom Filt Rate - Afr Amer 71 mL/min (>60); Estimated Creatinine Clearance 44.15 ml/min; Globulin 3.2 g/dL (2.2-4.2); Glucose 142 mg/dL (74-106); Potassium 4.1 mmol/L (3.5-5.1); Protein, Total 6.8 g/dL (6.4-8.2); Sodium Level 139 mmol/L (136-145)
[2024-01-02 20:00] LABS: Lactic Acid 4.6 mmol/L (0.4-1.9)
[2024-01-02 20:49] LABS: Absolute Lymphocyte Count 0.15 X10^3/uL (0.83-4.51); Absolute Neutrophil Count 10.6 X10^3/uL (2.0-7.7); Basophil# 0.03 X10^3/uL; Basophil% 0.3 % (0-1); Hematocrit 38.9 % (40-54); Hemoglobin 12.5 g/dL (13.0-16.5); Lymphocyte # 0.15 X10^3/ul (0.83-4.51); Lymphocyte % 1.3 % (19-41); Mean Corp Hgb Conc 32.1 g/dL (32-36); Mean Corpuscular Hgb 26.9 pg (27.0-32.0); Mean Corpuscular Volume 83.7 fL (80-94); Mean Platelet Vol. 9.2 fl (6.2-12.0); Monocyte# 0.76 X10^3/uL; Monocyte% 6.5 % (0-10); NRBC Flagged by Analyzer 0 % (0-5); Neutrophil # 10.64 X10^3/uL (2.7-7.7); Neutrophil % 90.6 % (47-70); POSITIVE DIFFERENTIAL YES; Platelet Count 151 K/mm3 (150-450); RBC Distribution Width CV 14.5 % (11.6-14.6); RBC Distribution Width SD 43.8 fl (35.1-43.9); Red Blood Count 4.65 M/mm3 (4.6-6.2); White Blood Count 11.7 K/mm3 (4.4-11.0)
[2024-01-02] MEDS: Vancomycin HCl 2,000 MG in 0.9% Normal Saline (500mL Bag) 500 ML 250 MG IV (21:39)
[2024-01-02] MEDS: Cefepime HCl 2 GM in 0.9% Normal Saline (100mL MB+) 100 ML IV (21:39)
[2024-01-02] MEDS: Acetaminophen 325 MG Tablet 650 MG PO (21:43)
[2024-01-02] MEDS: Tamsulosin HCl 0.4 MG Capsule PO (21:44)
[2024-01-02] MEDS: 0.9% Saline Lock 10 ML Syringe IV ×2 (21:44→22:00)
[2024-01-02] MEDS: Metoprolol Tartrate 50 MG Tablet PO (21:58)
[2024-01-02] MEDS: Gabapentin 400 MG Capsule PO (21:58)
[2024-01-02] MEDS: Pantoprazole Sodium 20 MG Tablet PO (22:00)
[2024-01-02] MEDS: Atorvastatin Calcium 80 MG Tablet PO (22:00)
[2024-01-02 22:47] LABS: Lactic Acid 1.8 mmol/L (0.4-1.9)
[2024-01-02 22:53] LABS: Reflex Lactate? Y
--- NOTE | 2024-01-02 23:59 | EKG12_ITS ---
Test Reason : ABNORMAL RHYTHM Blood Pressure : / mmHG Vent. Rate : 099 BPM Atrial Rate : 099 BPM P-R Int : 216 ms QRS Dur : 140 ms QT Int : 364 ms P-R-T Axes : 044 -31 004 degrees QTc Int : 467 ms Sinus rhythm with 1st degree A-V block Left axis deviation Right bundle branch block Abnormal ECG No previous ECGs available Confirmed by JOHN BROOKS, SAMY ([id number]), advertising editor ERASTO BARRETO ([id number]) on 01/09/2024 1:20:06 PM Referred By: Bob Neal Confirmed By:SAMY LOPEZ MD
[2024-01-03] VITALS (25 sets, daily range): BP systolic 81–111; BP diastolic 52–74; PULSE 66–98; RESP 14–20; TEMP 36.9–38.2; O2SAT 89–100; BMI 24.7
--- NOTE | 2024-01-03 02:19 | PCM.RX.CS ---
Consult Antibiotic Management Pharmacy has been consulted to manage selected antibiotic: Vancomycin Type of Intervention Type of Consult: New start Labs Labs: Sodium 139 mmol/L (136-145) 01/02/24 18:47 Potassium 4.1 mmol/L (3.5-5.1) 01/02/24 18:47 Chloride 106 mmol/L (98-107) 01/02/24 18:47 Carbon Dioxide 24.0 mmol/L (21.0-32.0) 01/02/24 18:47 Anion Gap 9 (5-15) 01/02/24 18:47 BUN 15 mg/dL (7-18) 01/02/24 18:47 Creatinine 1.24 mg/dL (0.70-1.30) 01/02/24 18:47 Est GFR (MDRD) Af Amer 71 mL/min (>60) 01/02/24 18:47 Est GFR (MDRD) Non-Af 59 mL/min (>60) L 01/02/24 18:47 BUN/Creatinine Ratio 12.1 RATIO (10-20) 01/02/24 18:47 Glucose 142 mg/dL (74-106) H 01/02/24 18:47 Microbiology Microbiology: Microbiology 01/02/24 23:30 Mucosa - Nasopharyngeal Respiratory Panel (PCR) - Final 12/27/23 10:35 Swab (Method) Nasal Screen MRSA/MSSA - Final Dosing Weight Weight used for dosin.8 kg Estimated Creatinine Clearance Estimated Creatinine Clearance: 44.15 Pharmacy Plan for Drug Dosing Pharmacy Plan for Drug Dosing: Pharmacy Service will continue to monitor and adjust dosing as required. 2000 GIVEN IN ER 01/01 @ 2139. 500MG Q12H AND FOLLOW UP TROUGH PRIOR TO 4TH DOSE Follow-Up Labs Follow-Up Labs: Trough: Vancomycin Date/Time Labs Ordered Labs to be done on [date and time ordered]: 01/03 @ 9425
[2024-01-03 05:11] LABS: Absolute Lymphocyte Count 0.58 X10^3/uL (0.83-4.51); Absolute Neutrophil Count 25.2 X10^3/uL (2.0-7.7); Basophil# 0.14 X10^3/uL; Basophil% 0.5 % (0-1); Hematocrit 35.6 % (40-54); Hemoglobin 11.5 g/dL (13.0-16.5); Lymphocyte # 0.58 X10^3/ul (0.83-4.51); Mean Corp Hgb Conc 32.3 g/dL (32-36); Mean Corpuscular Hgb 27.3 pg (27.0-32.0); Mean Corpuscular Volume 84.4 fL (80-94); Mean Platelet Vol. 9.7 fl (6.2-12.0); Monocyte% 9.2 % (0-10); NRBC Flagged by Analyzer 0 % (0-5); Neutrophil # 25.22 X10^3/uL (2.7-7.7); Neutrophil % 86.1 % (47-70); POSITIVE DIFFERENTIAL YES; Platelet Count 159 K/mm3 (150-450); RBC Distribution Width CV 14.7 % (11.6-14.6); RBC Distribution Width SD 45.2 fl (35.1-43.9); Red Blood Count 4.22 M/mm3 (4.6-6.2); White Blood Count 29.3 K/mm3 (4.4-11.0)
[2024-01-03 05:27] LABS: Anion Gap 7 (5-15); BUN 20 mg/dL (7-18); BUN/Creat Ratio 15.4 RATIO (10-20); Calcium,Total 8.1 mg/dL (8.5-10.1); Chloride 109 mmol/L (98-107); EST Glomerular Filtration Rate 56 mL/min (>60); Est Glom Filt Rate - Afr Amer 67 mL/min (>60); Estimated Creatinine Clearance 42.12 ml/min; Glucose 127 mg/dL (74-106); Potassium 4.4 mmol/L (3.5-5.1); Sodium Level 140 mmol/L (136-145)
[2024-01-03 05:39] LABS: Differential Indicated SCAN CRITERIA MET
[2024-01-03 05:40] LABS: Differential Comment SCANNED
--- NOTE | 2024-01-03 05:55 | RAD_ITS ---
INDICATION: Fever EXAMINATION/TECHNIQUE: X-RAY - XR Chest 1 View COMPARISON: 01/02/2024. FINDINGS: LINES/DEVICES: None. LUNGS: Left basilar atelectasis versus infiltrate. No evidence of a pleural effusion or a pneumothorax. MEDIASTINUM AND CARDIOVASCULAR STRUCTURES: Cardiac silhouette is normal in size and contour. Stable postsurgical changes. BONES AND SOFT TISSUES: No acute abnormality. RAD/Chest 1 View (Portable) IMPRESSION: Left basilar atelectasis versus infiltrate. Electronically Signed: Tejinder Hannah DO at 6:03 EDT ,
--- NOTE | 2024-01-03 07:05 | PN.HOSP_ITS ---
Reason for Visit Reason for Visit: Diagnoses Unilateral inguinal hernia, without obstruction or gangrene, not specified as r ecurrent (01/02/24) Hypoxemia (01/02/24) Nausea with vomiting, unspecified (01/02/24) Prediabetes (01/02/24) Encounter for other preprocedural examination (01/02/24) Other specified postprocedural states (01/02/24) Subjective Subjective Feeling better. Breathing well on room air. Objective Data Objective Data Vital Signs: Vital Signs Temp Pulse Resp BP Pulse Ox O2 Del Method O2 Flow Rate 37.3 C H 73 17 86/61 L 93 Room Air 4 01/03/24 06:00 01/03/24 06:00 01/03/24 06:00 01/03/24 06:00 01/03/24 06:00 01/03/24 06:00 01/02/24 22:00 Oxygen Flow Rate (L/min) 4 Oxygen Delivery Method Room Air Weight: 78.4 kg Body Mass Index (BMI) 24.7 Intake & Output: Intake and Output for Last 24 Hours 01/01/24 01/02/24 01/03/24 23:59 23:59 23:59 Intake Total 336.5 / 336.5 540 / 540 Output Total 550 / 550 Balance 336.5 / 336.5 -10 / -10 Lab / Micro Data 01/03/24 05:00 01/03/24 05:00 Labs: Laboratory Results - last 24 hr 01/02/24 18:47: Sodium 139, Potassium 4.1, Chloride 106, Carbon Dioxide 24.0, Anion Gap 9, BUN 15, Creatinine 1.24, Estim Creat Clear Calc 44.15, Est GFR (MDRD) Af Amer 71, Est GFR (MDRD) Non-Af 59 L, BUN/Creatinine Ratio 12.1, Glucose 142 H, Lactic Acid 4.6 H*, Calcium 8.6, Total Bilirubin 0.70, AST 20, ALT 25, Alkaline Phosphatase 84, Total Protein 6.8, Albumin 3.6, Globulin 3.2, Albumin/Globulin Ratio 1.1 01/02/24 20:40: WBC 11.7 H, RBC 4.65, Hgb 12.5 L, Hct 38.9 L, MCV 83.7, MCH 26.9 L, MCHC 32.1, RDW Std Deviation 43.8, RDW Coeff of José Miguel 14.5, Plt Count 151, MPV 9.2, Immature Gran % (Auto) 1.300 H, Neut % (Auto) 90.6 H, Lymph % (Auto) 1.3 L, [place] % (Auto) 6.5, Eos % (Auto) 0.0, Baso % (Auto) 0.3, Absolute Neuts (auto) 10.6 H, Absolute Lymphs (auto) 0.15 L, Nucleated RBC % 0 01/02/24 21:50: Lactic Acid 1.8 01/03/24 05:00: WBC 29.3 H, RBC 4.22 L, Hgb 11.5 L, Hct 35.6 L, MCV 84.4, MCH 27.3, MCHC 32.3, RDW Std Deviation 45.2 H, RDW Coeff of José Miguel 14.7 H, Plt Count 159, MPV 9.7, Immature Gran % (Auto) 2.200 H, Neut % (Auto) 86.1 H, Lymph % ( Auto) 2.0 L, [place] % (Auto) 9.2, Eos % (Auto) 0.0, Baso % (Auto) 0.5, Absolute Neuts (auto) 25.2 H, Absolute Lymphs (auto) 0.58 L, Nucleated RBC % 0, Differential Comment SCANNED, Diff Path Review February, Sodium 140, Potassium 4.4, Chloride 109 H, Carbon Dioxide 24.0, Anion Gap 7, BUN 20 H, Creatinine 1.30, Estim Creat Clear Calc 42.12, Est GFR (MDRD) Af Amer 67, Est GFR (MDRD) Non-Af 56 L, BUN/Creatinine Ratio 15.4, Glucose 127 H, Calcium 8.1 L Micro: Microbiology 01/02/24 23:30 Mucosa - Nasopharyngeal Respiratory Panel (PCR) - Final 12/27/23 10:35 Swab (Method) Nasal Screen MRSA/MSSA - Final Radiography Diagnostic Testing: Radiology Impression Chest X-Ray 01/02/24 18:45 IMPRESSION: Left lower lobe atelectasis or infiltrate and mild right basilar atelectasis.. Postop change in the right upper quadrant of the abdomen Electronically Signed: Tejinder Cline MD at 20:14 EDT , Chest X-Ray 01/03/24 05:55 IMPRESSION: Left basilar atelectasis versus infiltrate. Electronically Signed: Tejinder Hannah DO at 6:03 EDT , Physical Exam Const alert and no apparent distress HEENT head/scalp atraumatic and moist oral mucous membranes Resp normal respiratory effort Resp Narrative: coarse breath sounds bilaterally. Cardio regular rate, regular rhythm and S1 normal heart sound GI non-tender GI Narrative: slightly distended. Auscultation: hypoactive bowel sounds Neuro Sensorium / Orientation: awake and alert Assessment & Plan Assessment/Plan (1) Left inguinal hernia: (2) Postoperative nausea and vomiting: (3) Hypoxia: PLAN: Plan Suspected sepsis * source unclear, abdominal v pneumonia. Less likely NMS. Pt reported to have only received only propofol and fentanyl in surgery. * Post operatively 01/01: SIRS 3/4: Temp 39, pulse 134, RR 37. qSOFA 3. * continue empiric abx w vancomycin and cefepime (PCN allergy) * Resp panel, COVID 19, Strep and legionella, UA negative. * Follow up BCx, SCx * Chest Xray shows elevated right hemidiaphragm (report comments on LLL ATX v infiltrate. No prior CXR in [facility], however, CT A/P in 2019 showed this. Left inguinal hernia s/p open repair with mesh * General surgery primary. No intraoperative complications reported. Further management per surgery. Reported hypoxia, * Not reported in [facility], though pt required 4 liters/m. Since weaned down to room air. * concern for mild aspiration versus mild volume overload * abx as above * PEP * Hold on further IV fluids and patient may need spot doses of diuretics going forward. Monitor for signs of aspiration pneumonia. Chronic conditions: * History of multiple abdominal surgeries? History of multiple surgeries includi ng partial gastrectomy, cholecystectomy, colectomy (unclear on how much of colon removed). General surgery following as above. * History of CAD s/p CABG, mild aortic stenosis? Follows with outpatient cardiology, last office visit in 06/2023. Last echo in 11/06 showed EF 60%, aneurysmal atrial septum, mild aortic stenosis, otherwise no abnormalities. History of triple-vessel CABG in 2018. Cath in November 2021 revealed patent grafts.? Home Eliquis held for procedure, defer to surgery on when to resume this. Okay to continue home Lopressor, atorvastatin and Zetia. * Chronic back pain with neuropathy: Okay to continue home gabapentin. Hold home tramadol as needed. * Hypertension: Continue home Lopressor. * hyperlipidemia: Continue home atorvastatin and Zetia. * BPH with obstructive symptoms: Continue home Flomax. * GERD: Continue home PPI. * Insomnia: Continue home melatonin. * A-fib on Eliquis: Continue home Lopressor, holding Eliquis as noted above. * History of total hip arthroplasty DVT prophylaxis: SCDs Medicaly stable for transfer to [facility]U from my perspective. Charges/Coding Visit Charges Inpatient E&M: 15681 Subs Hosp L2
--- NOTE | 2024-01-03 07:40 | EX.PCM.CONCC ---
Assessment & Plan Assessment/Plan (1) Postoperative nausea and vomiting: (2) Hypoxia: PLAN: Plan RECOMMENDATIONS: 1. Continue empiric broad-spectrum antimicrobials. 2. Obtain CT chest/abdomen/pelvis 3. Administer LR bolus as ordered. 4. Encourage incentive spirometer use while in bed. 5. Hold metoprolol for now. IMPRESSIONS: 1. Postoperative fever, hypoxemia and hypotension Exact etiology is not entirely clear. Although evolving sepsis would be a possibility, there is no definitive source of infection yet identified. This chest imaging demonstrated some atelectasis in the left lower lobe. The patient was febrile overnight with borderline hemodynamic status. Alternatively, an adverse reaction to anesthesia is another potential etiology. Given the patient's fevers and elevated white blood cell count this morning, we will plan to obtain CT imaging of the chest/abdomen and pelvis to evaluate further for any potential sources of infection. In the interim, I agree with continuing broad-spectrum antimicrobials as ordered. Blood cultures are currently pending. Will administer additional IV fluid resuscitation this morning as well. 2. Left inguinal hernia status post open surgical repair with mesh Continue routine postoperative care per general surgery recommendations. 3. History of multiple abdominal surgeries/coronary artery disease/aortic stenosis/hypertension/hyperlipidemia/GERD/atrial fibrillation on Eliquis Complicates care, management, recovery and prognosis. Hold home antihypertensives for now. Resume systemic anticoagulation when medically appropriate. This note was generated with [employer] dictation software. It may contain incorrect words, spelling, and punctuation that were not noted in checking the note before signing. HPI Consult Data Date of Consult: 01/03/24 HPI Narrative Reason for Consultation: Acute hypoxia, concerns for sepsis with unclear source HPI Narrative: The patient is an 88-year-old male, with a history as outlined below, who presented to the hospital in January 03 undergoing elective left inguinal hernia repair. The patient does have a known history of coronary artery disease status post PCI along with atrial fibrillation along with a partial gastrectomy with intestinal bypass for gastric ulcer. The patient ultimately underwent a successful open inguinal hernia repair with mesh with an estimated blood loss of 5 mL. According to documentation, the patient developed postoperative nausea, vomiting, fevers and chills. There was initial concern for potential volume overload due to the development of hypoxemia postoperatively, requiring supplemental oxygen. The patient was noted to have a white blood cell count of 12,000 yesterday, which has increased to 29,000 this morning. Hemoglobin and platelet count are stable. Chemistry profile was notable for a lactate of 4.6, which has improved to 1.8. Creatinine is normal. Liver function profile was normal. Chest x-ray demonstrated left basilar atelectasis versus infiltrate. Respiratory viral panel was negative. Blood cultures were collected. The patient was initiated on antimicrobial therapy. This morning, the patient confirmed that he was on Eliquis prior to his surgical intervention. He currently denies any shortness of breath, chest discomfort or abdominal pain. His blood pressures remain borderline this morning. He was febrile overnight with a Tmax of 102.9 ?F. [facility] Medical History (Updated 01/02/24 @ 21:[address] Nick Morales, DO) Ambulates with cane Anemia Anxiety Aortic stenosis Arthritis Atrial fibrillation Back pain Bladder disease Borderline type 2 diabetes mellitus BPH (benign prostatic hyperplasia) CAD (coronary artery disease) Cancer Cardiology follow-up encounter Cardiology follow-up encounter Chronic nasal discharge Dietary restriction Essential (primary) hypertension Gastric ulcer Grief reaction Hepatitis History of arthritis History of atrial fibrillation History of back problems History of CVA (cerebrovascular accident) History of echocardiogram History of edema History of hearing problem History of heart disease History of hiatal hernia History of liver disease History of melanoma History of pneumonia History of stress test Hx of carpal tunnel syndrome Hx of gallstones Hx of gastric ulcer Hx of gastroesophageal reflux (GERD) Hx of hypotension Hx of irritable bowel syndrome Hx of seasonal allergies Hx of ulcer disease Hyperglycemia Hyperlipidemia Incisional hernia Left inguinal hernia Low iron Non-smoker NSTEMI (non-ST elevated myocardial infarction) (~04/07/19) Paroxysmal atrial fibrillation Peptic ulcer disease Prostate disease Shortness of breath on exertion TIA (transient ischemic attack) Vitamin D deficiency Wears glasses Wears glasses Wears hearing aid Home Medications apixaban 5 mg tablet (Eliquis) 5 mg PO BID 08/31/22 [History Last Taken 12/30/23] atorvastatin 80 mg tablet 80 mg PO DAILY 08/31/22 [History Last Taken 01/01/24] cholecalciferol (vitamin D3) 50 mcg (2,000 unit) capsule 50 mcg PO DAILY 08/31/22 [History Last Taken 01/01/24] docusate sodium 100 mg capsule 100 mg PO BID 08/31/22 [History Last Taken 01/01/24] ezetimibe 10 mg tablet 10 mg PO DAILY 08/31/22 [History Last Taken 01/01/24] gabapentin 400 mg capsule 400 mg PO BID 08/31/22 [History Last Taken 01/02/24] hydrocodone-acetaminophen 5-325mg 5mg-325mg 1 tab PO Q6H PRN pain 08/31/22 [History Last Taken Unknown] mecobalamin (vitamin B12) 1,000 mcg chewable tablet 1,000 mcg PO DAILY 08/31/22 [History Last Taken 01/01/24] melatonin 3 mg capsule 9 mg PO HS PRN sleep 08/31/22 [History Last Taken Unknown] metoprolol tartrate 50 mg tablet 50 mg PO BID 08/31/22 [History Last Taken 01/02/24] omeprazole 20 mg capsule,delayed release 20 mg PO BID 08/31/22 [History Last Taken 01/02/24] tamsulosin 0.4 mg capsule 0.4 mg PO BID 08/31/22 [History Last Taken 01/01/24] tramadol 50 mg tablet 50 mg PO Q6H PRN pain 08/31/22 [History Last Taken Unknown] ferrous sulfate 325 mg (65 mg iron) tablet 325 mg PO DAILY #90 tabs 09/19/22 [Rx Last Taken 01/01/24] mupirocin 2 % topical ointment 1 applic topical BID 1 week #15 grams 12/31/23 [Rx Last Taken Unknown] Allergy/AdvReac Type Severity Reaction Status Date / Time Penicillins Allergy Intermediate RASH Verified 01/02/24 12:34 Family History Father Myocardial infarction, Onset Age: 75 Brother Myocardial infarction, Onset Age: 55 Sister Myocardial infarction, Onset Age: 72 Surgical History (Updated 12/26/23 @ 10:21 by Johana Coleman) History of gastric surgery History of partial gastrectomy Hx of angioplasty (~2017) Hx of appendectomy Hx of cardiac catheterization (~12/02/21) Hx of cataract removal with insertion of prosthetic lens Hx of cholecystectomy Hx of colectomy Hx of colonoscopy Hx of esophagogastroduodenoscopy Hx of heart surgery Hx of inguinal hernia repair Hx of joint replacement Hx of total hip arthroplasty Social History Smoking Status: Never smoker alcohol intake: former substance use type: does not use caffeine: Yes Type: coffee Number of servings: 2 ROS ROS Narrative 10 systems were reviewed with pertinent positives as noted in the HPI above. Physical Exam Const alert and no apparent distress General Appearance: cooperative HEENT normocephalic and head/scalp atraumatic Eyes PERRL, EOMs intact bilaterally and conjunctivae normal Neck supple General: trachea midline Chest inspection of chest normal Resp normal respiratory effort Auscultation: Negative for rales, rhonchi or wheezes Cardio regular rate and regular rhythm GI soft to palpation Extremity no clubbing, cyanosis or edema Skin no rashes or lesions noted Neuro oriented x3, CN's II-XII intact bilaterally and moves all extremities Psych cooperative and affect normal Lab / Micro Data 01/03/24 05:00 01/03/24 05:00 Labs: Laboratory Results - last 24 hr 01/02/24 18:47: Sodium 139, Potassium 4.1, Chloride 106, Carbon Dioxide 24.0, Anion Gap 9, BUN 15, Creatinine 1.24, Estim Creat Clear Calc 44.15, Est GFR (MDRD) Af Amer 71, Est GFR (MDRD) Non-Af 59 L, BUN/Creatinine Ratio 12.1, Glucose 142 H, Lactic Acid 4.6 H*, Calcium 8.6, Total Bilirubin 0.70, AST 20, ALT 25, Alkaline Phosphatase 84, Total Protein 6.8, Albumin 3.6, Globulin 3.2, Albumin/Globulin Ratio 1.1 01/02/24 20:40: WBC 11.7 H, RBC 4.65, Hgb 12.5 L, Hct 38.9 L, MCV 83.7, MCH 26.9 L, MCHC 32.1, RDW Std Deviation 43.8, RDW Coeff of José Miguel 14.5, Plt Count 151, MPV 9.2, Immature Gran % (Auto) 1.300 H, Neut % (Auto) 90.6 H, Lymph % (Auto) 1.3 L, [place] % (Auto) 6.5, Eos % (Auto) 0.0, Baso % (Auto) 0.3, Absolute Neuts (auto) 10.6 H, Absolute Lymphs (auto) 0.15 L, Nucleated RBC % 0 01/02/24 21:50: Lactic Acid 1.8 01/03/24 05:00: WBC 29.3 H, RBC 4.22 L, Hgb 11.5 L, Hct 35.6 L, MCV 84.4, MCH 27.3, MCHC 32.3, RDW Std Deviation 45.2 H, RDW Coeff of José Miguel 14.7 H, Plt Count 159, MPV 9.7, Immature Gran % (Auto) 2.200 H, Neut % (Auto) 86.1 H, Lymph % (Auto) 2.0 L, [place] % (Auto) 9.2, Eos % (Auto) 0.0, Baso % (Auto) 0.5, Absolute Neuts (auto) 25.2 H, Absolute Lymphs (auto) 0.58 L, Nucleated RBC % 0, Differential Comment SCANNED, Diff Path Review February, Sodium 140, Potassium 4.4, Chloride 109 H, Carbon Dioxide 24.0, Anion Gap 7, BUN 20 H, Creatinine 1.30, Estim Creat Clear Calc 42.12, Est GFR (MDRD) Af Amer 67, Est GFR (MDRD) Non-Af 56 L, BUN/Creatinine Ratio 15.4, Glucose 127 H, Calcium 8.1 L Micro: Microbiology 01/02/24 23:30 Mucosa - Nasopharyngeal Respiratory Panel (PCR) - Final Imaging Radiology Impression Chest X-Ray 01/02/24 18:45 IMPRESSION: Left lower lobe atelectasis or infiltrate and mild right basilar atelectasis.. Postop change in the right upper quadrant of the abdomen Electronically Signed: Tejinder Cline MD at 20:14 EDT , Chest X-Ray 01/03/24 05:55 IMPRESSION: Left basilar atelectasis versus infiltrate. Electronically Signed: Tejinder Hannah DO at 6:03 EDT , Charges/Coding Visit Charges Inpatient E&M: 82182 Init Hosp L3
[2024-01-03] MEDS: Tamsulosin HCl 0.4 MG Capsule PO ×2 (08:02→21:40)
[2024-01-03] MEDS: Gabapentin 400 MG Capsule PO ×2 (08:02→21:40)
[2024-01-03] MEDS: oxyCODONE 5 MG Tablet PO (08:02)
[2024-01-03] MEDS: Docusate Sodium 100 MG Capsule PO ×2 (08:03→21:40)
[2024-01-03] MEDS: Pantoprazole Sodium 20 MG Tablet PO ×2 (08:03→21:40)
[2024-01-03] MEDS: Cefepime HCl 2 GM in 0.9% Normal Saline (100mL MB+) 100 ML IV ×2 (08:09→21:36)
--- NOTE | 2024-01-03 08:09 | CT_ITS ---
HISTORY: Sepsis of unclear etiology. TECHNIQUE: Helically acquired images were obtained of the abdomen and pelvis after the intravenous administration of 100 mL Isovue-370. A radiation dose optimization technique was used for this scan. 413 images. COMPARISON: 05/19/2023. FINDINGS: LOWER CHEST: Refer to CTA chest right lower lobe opacities. BOWEL: Mild hiatal hernia. Gastric postoperative change. 3 cm long intussusception at the duodenojejunal anastomosis with chronic patulous small bowel at the anastomosis. Overall bowel including appendix nondilated. Colonic diverticulosis without focal inflammatory change observed. Rectal anastomosis. PERITONEUM: No significant ascites. LIVER: Stable small cyst in the right lobe. GALLBLADDER/BILIARY TREE: Cholecystectomy with chronic intrahepatic and extra hepatic pneumobilia and biliary ductal dilatation.. SPLEEN: Calcified granulomas and small cyst again seen. PANCREAS: Chronic atrophy. KIDNEYS: 2 mm right lower pole calculus. No hydronephrosis. ADRENAL GLANDS: No nodules. VESSELS: No abdominal aortic aneurysm. Atherosclerosis of the abdominal aorta and its major branches. PELVIC ORGANS: Kaplan catheter and mild air in the decompressed bladder. ABDOMINAL WALL: Small fat-containing ventral hernia. Postoperative air and edema in the left inguinal canal. BONES: Osteopenia and degenerative change. Right hip arthroplasty in place CT/Abdomen/Pelvis W IV Cont ONLY IMPRESSION: Recurrent intussusception at the duodenal jejunal anastomosis without evidence for bowel obstruction. Colonic diverticulosis without acute diverticulitis. No significant interval change in pneumobilia with intrahepatic and extrahepatic biliary ductal dilatation. Small nonobstructing right renal calculus. Left inguinal postoperative changes. Electronically Signed: Nathalie Lala MD at 9:25 EDT ,
--- NOTE | 2024-01-03 08:09 | CT_ITS ---
HISTORY: Sepsis of unclear etiology. TECHNIQUE: CT angiogram of the chest was performed after the intravenous administration of 100 mL Isovue-370. Post-processing of the angiographic images was performed with multiplanar reformation and 3D reconstruction. Individualized dose optimization techniques were used for this CT. 1230 images. COMPARISON: XR same day. FINDINGS: CENTRAL AIRWAYS: Patent. LUNGS: Mild paraseptal emphysema. 3 mm left upper lobe nodule. Nodular and dependent alveolar opacities in the left lower lobe. Mild dependent alveolar opacities in the right upper lobe. Nodular opacities in the right lower lobe measuring up to 9 mm. Elevation of the right hemidiaphragm. PLEURA: No pneumothorax or significant pleural effusion. HEART/PERICARDIUM: Heart within normal limits in size. Midline sternotomy with coronary artery bypass graft. No pericardial effusion. PULMONARY ARTERIES: No filling defect. AORTA/VESSELS: No thoracic aortic aneurysm or dissection flap. Atherosclerosis noted. MEDIASTINUM/DAR: Scattered lymph nodes without pathologic enlargement. OSSEOUS STRUCTURES: Osteopenia and degenerative change. UPPER ABDOMEN: Refer to CT abdomen. CT/CTA Chest W/WO Contrast IMPRESSION: No evidence of pulmonary embolism. Mild alveolar and nodular opacities particularly in the left lower and right upper lobes, concerning for pneumonia or pneumonitis. Consider follow-up to resolution. Electronically Signed: Nathalie Lala MD at 9:39 EDT ,
--- NOTE | 2024-01-03 08:13 | PN.SURG_ITS ---
Subjective Subjective Patient seen and examined initially on AM rounds and then again this afternoon. During AM rounds he appeared to be resting in bed but was easily arousable and appropriate. Denied any discomfort. Objective Data Objective Data Vital Signs: Vital Signs Temp Pulse Resp BP Pulse Ox O2 Del Method O2 Flow Rate 99.2 F H 66 18 81/52 L 95 Room Air 4 01/03/24 07:00 01/03/24 08:04 01/03/24 07:00 01/03/24 08:04 01/03/24 07:00 01/03/24 07:00 01/02/24 22:00 Oxygen Flow Rate (L/min) 4 Oxygen Delivery Method Room Air Weight: 172 lb 13.478 oz Body Mass Index (BMI) 24.7 Intake & Output: Intake and Output for Last 24 Hours 01/01/24 01/02/24 01/03/24 23:59 23:59 23:59 Intake Total 336.5 / 336.5 540 / 540 Output Total 550 / 550 Balance 336.5 / 336.5 -10 / -10 Lab / Micro Data 01/03/24 12:00 01/03/24 12:00 Labs: Laboratory Results - last 24 hr 01/02/24 18:47: Sodium 139, Potassium 4.1, Chloride 106, Carbon Dioxide 24.0, Anion Gap 9, BUN 15, Creatinine 1.24, Estim Creat Clear Calc 44.15, Est GFR (MDRD) Af Amer 71, Est GFR (MDRD) Non-Af 59 L, BUN/Creatinine Ratio 12.1, Glucose 142 H, Lactic Acid 4.6 H*, Calcium 8.6, Total Bilirubin 0.70, AST 20, ALT 25, Alkaline Phosphatase 84, Total Protein 6.8, Albumin 3.6, Globulin 3.2, Albumin/Globulin Ratio 1.1 01/02/24 20:40: WBC 11.7 H, RBC 4.65, Hgb 12.5 L, Hct 38.9 L, MCV 83.7, MCH 26.9 L, MCHC 32.1, RDW Std Deviation 43.8, RDW Coeff of José Miguel 14.5, Plt Count 151, MPV 9.2, Immature Gran % (Auto) 1.300 H, Neut % (Auto) 90.6 H, Lymph % (Auto) 1.3 L, [place] % (Auto) 6.5, Eos % (Auto) 0.0, Baso % (Auto) 0.3, Absolute Neuts (auto) 10.6 H, Absolute Lymphs (auto) 0.15 L, Nucleated RBC % 0 01/02/24 21:50: Lactic Acid 1.8 01/03/24 05:00: WBC 29.3 H, RBC 4.22 L, Hgb 11.5 L, Hct 35.6 L, MCV 84.4, MCH 27.3, MCHC 32.3, RDW Std Deviation 45.2 H, RDW Coeff of José Miguel 14.7 H, Plt Count 159, MPV 9.7, Immature Gran % (Auto) 2.200 H, Neut % (Auto) 86.1 H, Lymph % (Auto) 2.0 L, [place] % (Auto) 9.2, Eos % (Auto) 0.0, Baso % (Auto) 0.5, Absolute Neuts (auto) 25.2 H, Absolute Lymphs (auto) 0.58 L, Nucleated RBC % 0, Differential Comment SCANNED, Diff Path Review February, Sodium 140, Potassium 4.4, Chloride 109 H, Carbon Dioxide 24.0, Anion Gap 7, BUN 20 H, Creatinine 1.30, Estim Creat Clear Calc 42.12, Est GFR (MDRD) Af Amer 67, Est GFR (MDRD) Non-Af 56 L, BUN/Creatinine Ratio 15.4, Glucose 127 H, Calcium 8.1 L Micro: Microbiology 01/02/24 23:30 Mucosa - Nasopharyngeal Respiratory Panel (PCR) - Final 12/27/23 10:35 Swab (Method) Nasal Screen MRSA/MSSA - Final Radiography Diagnostic Testing: Radiology Impression Chest X-Ray 01/02/24 18:45 IMPRESSION: Left lower lobe atelectasis or infiltrate and mild right basilar atelectasis.. Postop change in the right upper quadrant of the abdomen Electronically Signed: Tejinder Cline MD at 20:14 EDT Reading Location ID and State: [facility] / [place] Tel , Service support , Chest X-Ray 01/03/24 05:55 IMPRESSION: Left basilar atelectasis versus infiltrate. Electronically Signed: Tejinder Hannah DO at 6:03 EDT , Physical Exam Const oriented x3 and no apparent distress Resp normal respiratory effort Resp Narrative: Patient no longer requiring supplemental oxygen to maintain saturations Cardio regular rate GI GI Narrative: Soft, nondistended, nontender to palpation x 4 quadrants Narrative: Stable postoperative incision sealed with Dermabond. There is no significant swelling or tenderness. There is no bulging. Assessment & Plan Assessment/Plan (1) Postoperative nausea and vomiting: (2) Postoperative fever: (3) Status post left inguinal hernia repair: PLAN: Plan Patient is postoperative day 1 from left inguinal hernia repair performed via Nhan approach under MAC who developed postoperative fever, tachycardia, hypertension, and lactic acidosis. The above was concerning for medication reaction versus developing infection. Suspicion for medication reaction was merely temporal as patient did not have any inhalational anesthetics or muscle relaxants. Patient's labs presently trending favorably and lactic acidosis was transient. Patient did have significant leukocytosis this morning that appears to already be downtrending as well in response to empiric antibiotic therapy. CT linda scan of chest abdomen pelvis excluded pulmonary embolism but suggested possible pneumonia. Nursing reports that patient has had some secretions but has not required supplemental oxygen to maintain saturations. Appreciate the assistance of the ICU and hospitalist service with patient's workup. Will plan to continue empiric antibiotic therapy and follow-up blood cultures. If all other testing remains negative we will plan to treat empirically for pneumonia. Patient had repeatedly been asked if he had felt any sort of sickness preoperatively and he stated no, however, after asked more directly today he suggest that he has been coughing off and on for the last 2 to 3 days. Charges/Coding Visit Charges Inpatient E&M: 94554 Subs Hosp L2
[2024-01-03] MEDS: Lactated Ringers 1,000 ML 999 ML IV (08:15)
[2024-01-03 08:22] LABS: Red Blood Cells-Urine 0 SEEN /hpf (0-5)
[2024-01-03 08:27] LABS: Color, Urine Yellow (Yellow); Glucose, Dipstick Normal (Normal); Ketone-Dipstick 15 mg/dl (Negative); Leukocyte Esterase-Dipstick 100 /ul (Negative); Nitrite-Dipstick Positive (Negative); Occult Blood-Urine 25 /ul (Negative); Protein-Dipstick 100 mg/dl (Negative); Specific Gravity, Urine 1.025 (1.002-1.030); Urine Clarity Sl. Cloudy (Clear); Urine Urobilinogen 1 mg/dl (Normal)
[2024-01-03 08:28] LABS: Urine Bilirubin Dipstick 1 mg/dL (Negative)
[2024-01-03 08:38] LABS: Bacteria 1+ /hpf (None Seen); Mucous, Urine 1+ /hpf (<or=2+); Squamous Epithelial Cells - UA 0-5 SEEN /hpf (0-5); White Blood Cells 0-5 SEEN /hpf (0-5)
[2024-01-03] MEDS: Vancomycin IV 500 MG/100 ML BAG 100 MG IV ×2 (09:23→22:58)
[2024-01-03] MEDS: Ezetimibe 10 MG Tablet PO (09:27)
[2024-01-03] MEDS: Cholecalciferol (VIT D3) 25 MCG TABLET (1,000 UNITS) 50 MCG PO (09:27)
--- NOTE | 2024-01-03 10:04 | CASEMGMT ---
Social Work SW asked to meet w/pt and son. SW spoke w/pt and son, son wanted to have a form completed for DNR code status. SW reviewed code status to confirm the chart has it listed accurately. Physician signed the form and a copy will be placed on the chart and given to pt and son. KIRAN Padgett
--- NOTE | 2024-01-03 10:24 | CASEMGMT ---
Addendum entered by Lisa Parrish 01/03/24 15:03: HOLGER PINK Assessment Pt status changed to inpt. This RN CM to pt room for full assessment. Pt is A&Ox4 and is resting comfortably in bed and is calm. Pt son at bedside. Care providers, pharmacy, and demographics verified. Admitting dx: Hernia LACE Strata: 1 PCP: Ami Specialists: Denies Preferred Pharmacy: [facility] Insurance: [place], [facility] A/B, [facility] Prescription Benefit: Yes LNOK: Diego Ortega (son) Living Arrangements: Pt lives alone in a single story home with a BM with HR and a chair lift. 2 steps to enter with HR. Pt denies issues at home. ADLs/IADLs: Ind Transportation: Self, son DME: Pt states that he uses a cane. Pt denies all other DME uses or needs. HHC/SNF: States history of HHC SN through the [place]. States history at [facility] x2 years ago after cardiac surgery Pt?s goal: Home no needs. Plan: Pt denies the need for HHC, SNF at this time. Pt states that he feels safe at home and wants to DC home once medically ready. Pt denies further needs. CM to follow for safe DC home. Lakshmi Parrish RN, CM Original Note: HOLGER PINK to pt room at this time regarding DC planning. Pt states that he is ind at home. Pt lives alone. Pt drives. Pt states that he feels safe at home. Pt denies the need for HHC at this time. Pt states that he wishes to return home with no needs at time of DC. CM to follow for safe DC home.
[2024-01-03 12:26] LABS: Absolute Lymphocyte Count 0.87 X10^3/uL (0.83-4.51); Absolute Neutrophil Count 17.7 X10^3/uL (2.0-7.7); Basophil# 0.06 X10^3/uL; Basophil% 0.3 % (0-1); Eosinophil# 0.05 X10^3/uL; Eosinophils% 0.2 % (0-5); Hematocrit 35.8 % (40-54); Hemoglobin 11.1 g/dL (13.0-16.5); Lymphocyte # 0.87 X10^3/ul (0.83-4.51); Lymphocyte % 4.1 % (19-41); Mean Corpuscular Hgb 26.6 pg (27.0-32.0); Mean Corpuscular Volume 85.9 fL (80-94); Mean Platelet Vol. 9.4 fl (6.2-12.0); Monocyte# 2.12 X10^3/uL; NRBC Flagged by Analyzer 0 % (0-5); Neutrophil # 17.67 X10^3/uL (2.7-7.7); Neutrophil % 83.2 % (47-70); POSITIVE DIFFERENTIAL YES; Platelet Count 147 K/mm3 (150-450); RBC Distribution Width CV 14.9 % (11.6-14.6); RBC Distribution Width SD 47.3 fl (35.1-43.9); Red Blood Count 4.17 M/mm3 (4.6-6.2); White Blood Count 21.2 K/mm3 (4.4-11.0)
[2024-01-03 12:27] LABS: Differential Indicated SCAN CRITERIA MET
[2024-01-03 12:45] LABS: ALB/GLOB Ratio 0.9 RATIO (0.9-2.4); AST(SGOT) 49 U/L (15-37); Alanine Aminotransfer ALT/SGPT 24 U/L (16-61); Albumin, Serum 2.5 g/dL (3.2-5.0); Alkaline Phosphatase 55 U/L (45-117); Anion Gap 5 (5-15); BUN 22 mg/dL (7-18); BUN/Creat Ratio 18.3 RATIO (10-20); Calcium,Total 8.1 mg/dL (8.5-10.1); Chloride 109 mmol/L (98-107); EST Glomerular Filtration Rate 61 mL/min (>60); Est Glom Filt Rate - Afr Amer 74 mL/min (>60); Estimated Creatinine Clearance 45.63 ml/min; Globulin 2.8 g/dL (2.2-4.2); Glucose 115 mg/dL (74-106); Potassium 4.2 mmol/L (3.5-5.1); Protein, Total 5.3 g/dL (6.4-8.2); Sodium Level 140 mmol/L (136-145)
[2024-01-03 12:48] LABS: Differential Comment SCANNED
[2024-01-03] MEDS: Acetaminophen 500 MG Tablet PO ×2 (15:21→21:47)
--- NOTE | 2024-01-03 15:47 | CHAPLAIN ---
Type of Pastoral Visit _x__ Initial Visit ___ Follow-up Visit ___ On-call Visit ___ General Patient Visit ___ Spiritual Assessment ___ Family Conference ___ Bereavement ___ Rapid Response ___ Code Blue ___ Other (describe below) Pastoral Care Referral From ___ Patient _x__ Family ___ Nurse ___ Physician ___ Paper Finisher ___ Director Of Social Services ___ Other (describe below) Sacrament/Intervention ___ Active listening ___ Anointing ___ Shinto ___ Bereavement ___ Communion ___ Kimberly exploration ___ ___ Life review ___ Prayer ___ Reconciliation ___ Sacrament of Sick _x__ Supportive presence ___ Wedding ___ Other (describe below) Pastoral Comments patient is sleeping at this time but son is at the bedside; offered support and time to listen to the son; son admitted that this is hard because his mother/patient's in October of this very same thing; pt has told others that he wants a DNR and son will abide with pt's wishes but hopes he doesn't have to use it now or soon; offer to return to meet with patient when he is more alert
[2024-01-03] MEDS: Metoprolol Tartrate 50 MG Tablet PO (21:40)
[2024-01-03] MEDS: Atorvastatin Calcium 80 MG Tablet PO (21:40)
[2024-01-04] VITALS (8 sets, daily range): BP systolic 109–130; BP diastolic 61–70; PULSE 63–82; RESP 16–18; TEMP 36.7–36.9; O2SAT 93–97; BMI 25.5
[2024-01-04] MEDS: Ipratropium/Albuterol Sulfate 3 ML AMPUL.NEB INHALATION ×2 (07:16→13:58)
--- NOTE | 2024-01-04 07:39 | PCM.PN.SRG ---
Subjective Subjective Patient seen and examined during AM rounds. He reports that he is feeling better. Nursing denies any need for oxygen overnight. Patient tolerating liquids without difficulty. Objective Data Objective Data Vital Signs: Vital Signs Temp Pulse Resp BP Pulse Ox O2 Del Method O2 Flow Rate 98.2 F 82 18 109/66 93 Nasal Cannula 2 01/04/24 03:51 01/04/24 07:18 01/04/24 07:18 01/04/24 03:51 01/04/24 07:18 01/04/24 07:18 01/04/24 07:18 Oxygen Flow Rate (L/min) 2 Oxygen Delivery Method Nasal Cannula Weight: 178 lb 9.6 oz Body Mass Index (BMI) 25.5 Intake & Output: Intake and Output for Last 24 Hours 01/02/24 01/03/24 01/04/24 23:59 23:59 23:59 Intake Total 336.5 / 336.5 2767.5 / 2967.5 200 / 200 Output Total 775 / 1275 700 / 700 Balance 336.5 / 336.5 1992.5 / 1692.5 -500 / -500 Lab / Micro Data 01/04/24 07:35 01/04/24 07:35 Labs: Laboratory Results - last 24 hr 01/03/24 08:00: Urine Color Yellow, Urine Clarity Sl. Cloudy, Urine pH 5.0, Ur Specific Cerulean 1.025, Urine Protein 100 H, Urine Glucose (UA) Normal, Urine Ketones 15 H, Urine Occult Blood 25 H, Urine Nitrite Positive H, Urine Bilirubin 1 H, Urine Urobilinogen 1 H, Ur Leukocyte Esterase 100 H, Urine RBC 0 SEEN, Urine WBC 0-5 SEEN, Ur Squamous Epith Cells 0-5 SEEN, Urine Bacteria 1+, Urine Mucus 1+ 01/03/24 12:00: WBC 21.2 H, RBC 4.17 L, Hgb 11.1 L, Hct 35.8 L, MCV 85.9, MCH 26.6 L, MCHC 31.0 L, RDW Std Deviation 47.3 H, RDW Coeff of José Miguel 14.9 H, Plt Count 147 L, MPV 9.4, Immature Gran % (Auto) 2.200 H, Neut % (Auto) 83.2 H, Lymph % (Auto) 4.1 L, Dawes % (Auto) 10.0, Eos % (Auto) 0.2, Baso % (Auto) 0.3, Absolute Neuts (auto) 17.7 H, Absolute Lymphs (auto) 0.87, Nucleated RBC % 0, Differential Comment SCANNED, Diff Path Review February, Sodium 140, Potassium 4.2, Chloride 109 H, Carbon Dioxide 26.0, Anion Gap 5, BUN 22 H, Creatinine 1.20, Estim Creat Clear Calc 45.63, Est GFR (MDRD) Af Amer 74, Est GFR (MDRD) Non-Af 61, BUN/Creatinine Ratio 18.3, Glucose 115 H, Calcium 8.1 L, Total Bilirubin 0.90, AST 49 H, ALT 24, Alkaline Phosphatase 55, Total Protein 5.3 L, Albumin 2.5 L, Globulin 2.8, Albumin/Globulin Ratio 0.9 Micro: Microbiology 01/03/24 08:00 Nasal Secretion SARS-CoV-2 Antigen (Rapid) - Final 01/03/24 08:00 Urine Catheter - Catheter Legionella Antigen - Final 01/03/24 08:00 Urine Catheter - Catheter Streptococcus pneumoniae Antigen (M - Final 01/02/24 23:30 Mucosa - Nasopharyngeal Respiratory Panel (PCR) - Final 12/27/23 10:35 Swab (Method) Nasal Screen MRSA/MSSA - Final Radiography Diagnostic Testing: Radiology Impression Abdomen/Pelvis CT 01/03/24 08:09 IMPRESSION: Recurrent intussusception at the duodenal jejunal anastomosis without evidence for bowel obstruction. Colonic diverticulosis without acute diverticulitis. No significant interval change in pneumobilia with intrahepatic and extrahepatic biliary ductal dilatation. Small nonobstructing right renal calculus. Left inguinal postoperative changes. Electronically Signed: Nathalie Lala MD at 9:25 EDT , Chest CTA 01/03/24 08:09 IMPRESSION: No evidence of pulmonary embolism. Mild alveolar and nodular opacities particularly in the left lower and right upper lobes, concerning for pneumonia or pneumonitis. Consider follow-up to resolution. Electronically Signed: Nathalie Lala MD at 9:39 EDT , Physical Exam Const oriented x3 and no apparent distress Resp normal respiratory effort Narrative: Mild erythema superior medially to patient's incision and left groin. There is expected tenderness immediately about the patient's incision but the soft tissues remain soft. Assessment & Plan Assessment/Plan (1) Postoperative nausea and vomiting: (2) Postoperative fever: (3) Status post left inguinal hernia repair: PLAN: Plan Patient is postoperative day 2 from left inguinal hernia repair performed via Nhan approach under MAC who developed postoperative fever, tachycardia, hypertension, and lactic acidosis. The above was concerning for medication reaction versus developing infection. Suspicion for medication reaction was merely temporal as patient did not have any inhalational anesthetics or muscle relaxants. Today patient's white count has further down trended and he appears further clinically improved. His surgical site remains appropriate. Blood cultures and sputum cultures remain in a pending status. In discussions with both pulmonary medicine/senior linux unix engineer and hospitalist services it seems reasonable to bertha patient discharged to home with treatment for presumptive pneumonia diagnosis rather than await results of cultures given his clinical improvements. Will plan for short interval follow-up to try to ensure continued improvement. Plan was discussed with patient and his family as well. All expressed comfort and satisfaction with this course of action. Charges/Coding Visit Charges Inpatient E&M: 37217 Subs Hosp L2
[2024-01-04 08:06] LABS: Absolute Lymphocyte Count 0.97 X10^3/uL (0.83-4.51); Absolute Neutrophil Count 11.3 X10^3/uL (2.0-7.7); Basophil# 0.06 X10^3/uL; Basophil% 0.4 % (0-1); Eosinophil# 0.19 X10^3/uL; Eosinophils% 1.3 % (0-5); Hematocrit 35.9 % (40-54); Hemoglobin 11.2 g/dL (13.0-16.5); Lymphocyte # 0.97 X10^3/ul (0.83-4.51); Lymphocyte % 6.7 % (19-41); Mean Corp Hgb Conc 31.2 g/dL (32-36); Mean Corpuscular Hgb 26.7 pg (27.0-32.0); Mean Corpuscular Volume 85.7 fL (80-94); Mean Platelet Vol. 10.2 fl (6.2-12.0); Monocyte# 1.65 X10^3/uL; Monocyte% 11.4 % (0-10); NRBC Flagged by Analyzer 0 % (0-5); Neutrophil # 11.34 X10^3/uL (2.7-7.7); Neutrophil % 78.7 % (47-70); POSITIVE DIFFERENTIAL YES; Platelet Count 136 K/mm3 (150-450); RBC Distribution Width CV 14.9 % (11.6-14.6); RBC Distribution Width SD 46.8 fl (35.1-43.9); Red Blood Count 4.19 M/mm3 (4.6-6.2); White Blood Count 14.4 K/mm3 (4.4-11.0)
[2024-01-04 08:17] LABS: Differential Indicated SCAN CRITERIA MET
[2024-01-04] MEDS: Metoprolol Tartrate 50 MG Tablet PO (08:17)
[2024-01-04] MEDS: Pantoprazole Sodium 20 MG Tablet PO (08:17)
[2024-01-04] MEDS: Tamsulosin HCl 0.4 MG Capsule PO (08:18)
[2024-01-04] MEDS: Ezetimibe 10 MG Tablet PO (08:18)
[2024-01-04] MEDS: Cholecalciferol (VIT D3) 25 MCG TABLET (1,000 UNITS) 50 MCG PO (08:18)
[2024-01-04] MEDS: Gabapentin 400 MG Capsule PO (08:24)
[2024-01-04] MEDS: Ensure Plus High Protein 120 ML LIQUID PO ×3 (08:24→16:27)
[2024-01-04] MEDS: oxyCODONE 5 MG Tablet PO (08:28)
[2024-01-04 08:33] LABS: ALB/GLOB Ratio 0.8 RATIO (0.9-2.4); AST(SGOT) 57 U/L (15-37); Alanine Aminotransfer ALT/SGPT 25 U/L (16-61); Albumin, Serum 2.5 g/dL (3.2-5.0); Alkaline Phosphatase 59 U/L (45-117); Anion Gap 5 (5-15); BUN 21 mg/dL (7-18); BUN/Creat Ratio 19.6 RATIO (10-20); Calcium,Total 8.6 mg/dL (8.5-10.1); Chloride 110 mmol/L (98-107); Creatinine, Serum 1.07 mg/dL (0.70-1.30); EST Glomerular Filtration Rate 70 mL/min (>60); Est Glom Filt Rate - Afr Amer 84 mL/min (>60); Estimated Creatinine Clearance 51.17 ml/min; Glucose 106 mg/dL (74-106); Protein, Total 5.5 g/dL (6.4-8.2); Sodium Level 139 mmol/L (136-145)
--- NOTE | 2024-01-04 09:16 | PN.HOSP_ITS ---
Subjective Subjective Doing well, no issues overnight. Respiratory status is stable Objective Data Objective Data Vital Signs: Vital Signs Temp Pulse Resp BP Pulse Ox O2 Del Method O2 Flow Rate 98.1 F 77 16 130/70 H 95 Room Air 2 01/04/24 09:00 01/04/24 09:00 01/04/24 09:00 01/04/24 09:00 01/04/24 09:00 01/04/24 09:00 01/04/24 07:18 Oxygen Flow Rate (L/min) 2 Oxygen Delivery Method Room Air Weight: 178 lb 9.6 oz Body Mass Index (BMI) 25.5 Intake & Output: Intake and Output for Last 24 Hours 01/03/24 01/04/24 01/05/24 03:59 03:59 03:59 Intake Total 876.5 / 876.5 2427.5 / 2427.5 Output Total 1275 / 1275 200 / 200 Balance 876.5 / 876.5 1152.5 / 1152.5 -200 / -200 Lab / Micro Data 01/04/24 07:35 01/04/24 07:35 Labs: Laboratory Results - last 24 hr 01/03/24 12:00: WBC 21.2 H, RBC 4.17 L, Hgb 11.1 L, Hct 35.8 L, MCV 85.9, MCH 26.6 L, MCHC 31.0 L, RDW Std Deviation 47.3 H, RDW Coeff of José Miguel 14.9 H, Plt Count 147 L, MPV 9.4, Immature Gran % (Auto) 2.200 H, Neut % (Auto) 83.2 H, Lymph % (Auto) 4.1 L, Graham % (Auto) 10.0, Eos % (Auto) 0.2, Baso % (Auto) 0.3, Absolute Neuts (auto) 17.7 H, Absolute Lymphs (auto) 0.87, Nucleated RBC % 0, Differential Comment SCANNED, Diff Path Review February, Sodium 140, Potassium 4.2, Chloride 109 H, Carbon Dioxide 26.0, Anion Gap 5, BUN 22 H, Creatinine 1.20, Estim Creat Clear Calc 45.63, Est GFR (MDRD) Af Amer 74, Est GFR (MDRD) Non-Af 61, BUN/Creatinine Ratio 18.3, Glucose 115 H, Calcium 8.1 L, Total Bilirubin 0.90, AST 49 H, ALT 24, Alkaline Phosphatase 55, Total Protein 5.3 L, Albumin 2.5 L, Globulin 2.8, Albumin/Globulin Ratio 0.9 01/04/24 07:35: WBC 14.4 H, RBC 4.19 L, Hgb 11.2 L, Hct 35.9 L, MCV 85.7, MCH 26.7 L, MCHC 31.2 L, RDW Std Deviation 46.8 H, RDW Coeff of José Miguel 14.9 H, Plt Count 136 L, MPV 10.2, Immature Gran % (Auto) 1.500 H, Neut % (Auto) 78.7 H, Lymph % (Auto) 6.7 L, Graham % (Auto) 11.4 H, Eos % (Auto) 1.3, Baso % (Auto) 0.4, Absolute Neuts (auto) 11.3 H, Absolute Lymphs (auto) 0.97, Nucleated RBC % 0, Sodium 139, Potassium 4.0, Chloride 110 H, Carbon Dioxide 24.0, Anion Gap 5, BUN 21 H, Creatinine 1.07, Estim Creat Clear Calc 51.17, Est GFR (MDRD) Af Amer 84, Est GFR (MDRD) Non-Af 70, BUN/Creatinine Ratio 19.6, Glucose 106, Calcium 8.6, Total Bilirubin 0.90, AST 57 H, ALT 25, Alkaline Phosphatase 59, Total Protein 5.5 L, Albumin 2.5 L, Globulin 3.0, Albumin/Globulin Ratio 0.8 L Micro: Microbiology 01/03/24 08:00 Nasal Secretion SARS-CoV-2 Antigen (Rapid) - Final 01/03/24 08:00 Urine Catheter - Catheter Legionella Antigen - Final 01/03/24 08:00 Urine Catheter - Catheter Streptococcus pneumoniae Antigen (M - Final 01/02/24 23:30 Mucosa - Nasopharyngeal Respiratory Panel (PCR) - Final 12/27/23 10:35 Swab (Method) Nasal Screen MRSA/MSSA - Final Radiography Diagnostic Testing: Radiology Impression Abdomen/Pelvis CT 01/03/24 08:09 IMPRESSION: Recurrent intussusception at the duodenal jejunal anastomosis without evidence for bowel obstruction. Colonic diverticulosis without acute diverticulitis. No significant interval change in pneumobilia with intrahepatic and extrahepatic biliary ductal dilatation. Small nonobstructing right renal calculus. Left inguinal postoperative changes. Electronically Signed: Nathalie Lala MD at 9:25 EDT , Chest CTA 01/03/24 08:09 IMPRESSION: No evidence of pulmonary embolism. Mild alveolar and nodular opacities particularly in the left lower and right upper lobes, concerning for pneumonia or pneumonitis. Consider follow-up to resolution. Electronically Signed: Nathalie Lala MD at 9:39 EDT , Physical Exam Narrative General: Alert, Oriented x3, Cooperative, No apparent distress HEENT: Atraumatic, PERRLA, EOMI, Normocephalic Oral: Moist Mucosa Neck: Supple, No JVD Lungs: Diminished, Normal air movement, No rhonchi, No wheeze, No rales Cardiovascular: Regular rate, Regular Rhythm, Normal S1, Normal S2, No murmurs Abdomen: Soft, Non Tender, Non-Distended, No Hepato-splenomegaly Extremities: No edema, Capillary Refill Less than 3 Seconds Skin: Incision CDI Musculoskeletal: No Tenderness to Palpation of Joints or Extremities Neurological: No focal neurological deficits, Motor Exam 5/5 strength throughout, Sensory exam intact to light touch and pain Psych/Mental Status: Normal Affect, Appropriate Assessment & Plan Assessment/Plan (1) Left inguinal hernia: (2) Postoperative nausea and vomiting: (3) Hypoxia: PLAN: Plan Suspected sepsis * source unclear, abdominal v pneumonia. Less likely NMS. Pt reported to have only received only propofol and fentanyl in surgery. * Post operatively 01/01: SIRS 3/4: Temp 39, pulse 134, RR 37. qSOFA 3. * continue empiric abx w vancomycin and cefepime (PCN allergy) * Resp panel, COVID 19, Strep and legionella, UA negative. * Follow up BCx, SCx * Chest Xray shows elevated right hemidiaphragm (report comments on LLL ATX v infiltrate. No prior CXR in [facility], however, CT A/P in 2019 showed this. 01/04/2024: Continue with empiric antibiotics culture data has not come back yet though he is improving Left inguinal hernia s/p open repair with mesh * General surgery primary. No intraoperative complications reported. Further management per surgery. Reported hypoxia, * Not reported in [facility], though pt required 4 liters/m. Since weaned down to room air. * concern for mild aspiration versus mild volume overload * abx as above * PEP * Hold on further IV fluids and patient may need spot doses of diuretics going forward. Monitor for signs of aspiration pneumonia. 01/04/2024: Resolved Chronic conditions: * History of multiple abdominal surgeries? History of multiple surgeries including partial gastrectomy, cholecystectomy, colectomy (unclear on how much of colon removed). General surgery following as above. * History of CAD s/p CABG, mild aortic stenosis? Follows with outpatient cardiology, last office visit in 06/2023. Last echo in 11/06 showed EF 60%, aneurysmal atrial septum, mild aortic stenosis, otherwise no abnormalities. History of triple-vessel CABG in 2018. Cath in November 2021 revealed patent grafts.? Home Eliquis held for procedure, defer to surgery on when to resume this. Okay to continue home Lopressor, atorvastatin and Zetia. * Chronic back pain with neuropathy: Okay to continue home gabapentin. Hold home tramadol as needed. * Hypertension: Continue home Lopressor. * hyperlipidemia: Continue home atorvastatin and Zetia. * BPH with obstructive symptoms: Continue home Flomax. * GERD: Continue home PPI. * Insomnia: Continue home melatonin. * A-fib on Eliquis: Continue home Lopressor, holding Eliquis as noted above. Can likely restart Eliquis on discharge if okay with general surgery * History of total hip arthroplasty DVT: SCDs Charges/Coding Visit Charges Inpatient E&M: 18072 Subs Hosp L2
[2024-01-04] MEDS: 0.9% Saline Lock 10 ML Syringe IV (09:28)
[2024-01-04] MEDS: Cefepime HCl 2 GM in 0.9% Normal Saline (100mL MB+) 100 ML IV (09:28)
[2024-01-04 09:33] LABS: Pathologist Review Reviewed
--- NOTE | 2024-01-04 09:40 | PCM.PN.INT ---
Assessment & Plan Assessment/Plan (1) Postoperative nausea and vomiting: (2) Hypoxia: PLAN: Plan RECOMMENDATIONS: 1. Continue antimicrobials until culture results are finalized. 2. If blood and urine cultures are negative, transition patient to Augmentin to complete 7 days of therapy. 3. Encourage incentive spirometer use while in bed. 4. Given that the patient has no active pulmonary or critical care needs, will sign off. Please call with any additional questions. IMPRESSIONS: 1. Postoperative fever, hypoxemia and hypotension Exact etiology is not entirely clear. Although evolving sepsis would be a possibility, there was no definitive source of infection yet identified. The patient ultimately underwent CT chest/abdomen/pelvis. His chest imaging did demonstrate some nodular opacities, which could be consistent with an occult infection versus aspiration pneumonitis in the setting of his postoperative vomiting. However, the patient has been febrile with an elevated white blood cell count. Therefore, I would error on the side of caution and continue antimicrobials to complete a total of 7 days of therapy. If the patient's blood and urine cultures are negative, he can be transition to Augmentin to finish his antibiotic treatment course. The patient remains hemodynamically stable and is maintaining appropriate oxygen saturations on room air. No additional pulmonary workup or intervention is required at this time. 2. Left inguinal hernia status post open surgical repair with mesh Continue routine postoperative care per general surgery recommendations. 3. History of multiple abdominal surgeries/coronary artery disease/aortic stenosis/hypertension/hyperlipidemia/GERD/atrial fibrillation on Eliquis Complicates care, management, recovery and prognosis. Resume systemic anticoagulation when medically appropriate. This note was generated with Viewpoint dictation software. It may contain incorrect words, spelling, and punctuation that were not noted in checking the note before signing. Subjective Subjective The patient was seen and examined at the bedside this morning. Events from the last 24 hours have been reviewed. The patient is currently afebrile, hemodynamically stable and maintaining appropriate oxygen saturations on room air. White blood cell count has improved to 14,000. Creatinine remains within normal limits. Urine analysis completed yesterday was positive for nitrites and leukocyte Estrace along with 1+ urine bacteria. CTA chest showed no evidence for pulmonary embolism. There was, however, scattered nodular opacities, concerning for possible infection versus aspiration pneumonitis. The patient is currently resting comfortably in his bedside recliner, visiting with family. He has no specific complaints this morning. Objective Data Objective Data The patient's most recent lab work, culture data and imaging studies have all been personally reviewed. Blood, urine and sputum cultures are pending. Vital Signs: Vital Signs Temp Pulse Resp BP Pulse Ox O2 Del Method O2 Flow Rate 98.1 F 77 16 130/70 H 95 Room Air 2 01/04/24 09:00 01/04/24 09:00 01/04/24 09:00 01/04/24 09:00 01/04/24 09:00 01/04/24 09:00 01/04/24 07:18 Oxygen Flow Rate (L/min) 2 Oxygen Delivery Method Room Air Weight: 178 lb 9.6 oz Body Mass Index (BMI) 25.5 Intake & Output: Intake and Output for Last 24 Hours 01/02/24 01/03/24 01/04/24 23:59 23:59 23:59 Intake Total 336.5 / 336.5 2767.5 / 2967.5 200 / 200 Output Total 775 / 1275 700 / 700 Balance 336.5 / 336.5 1992.5 / 1692.5 -500 / -500 Lab / Micro Data Attestation: I reviewed the patient's lab results. 01/04/24 07:35 01/04/24 07:35 Labs: Laboratory Results - last 24 hr 01/03/24 05:00: Diff Path Review Reviewed 01/03/24 12:00: WBC 21.2 H, RBC 4.17 L, Hgb 11.1 L, Hct 35.8 L, MCV 85.9, MCH 26.6 L, MCHC 31.0 L, RDW Std Deviation 47.3 H, RDW Coeff of José Miguel 14.9 H, Plt Count 147 L, MPV 9.4, Immature Gran % (Auto) 2.200 H, Neut % (Auto) 83.2 H, Lymph % (Auto) 4.1 L, Woodruff % (Auto) 10.0, Eos % (Auto) 0.2, Baso % (Auto) 0.3, Absolute Neuts (auto) 17.7 H, Absolute Lymphs (auto) 0.87, Nucleated RBC % 0, Differential Comment SCANNED, Diff Path Review February, Sodium 140, Potassium 4.2, Chloride 109 H, Carbon Dioxide 26.0, Anion Gap 5, BUN 22 H, Creatinine 1.20, Estim Creat Clear Calc 45.63, Est GFR (MDRD) Af Amer 74, Est GFR (MDRD) Non-Af 61, BUN/Creatinine Ratio 18.3, Glucose 115 H, Calcium 8.1 L, Total Bilirubin 0.90, AST 49 H, ALT 24, Alkaline Phosphatase 55, Total Protein 5.3 L, Albumin 2.5 L, Globulin 2.8, Albumin/Globulin Ratio 0.9 01/04/24 07:35: WBC 14.4 H, RBC 4.19 L, Hgb 11.2 L, Hct 35.9 L, MCV 85.7, MCH 26.7 L, MCHC 31.2 L, RDW Std Deviation 46.8 H, RDW Coeff of José Miguel 14.9 H, Plt Count 136 L, MPV 10.2, Immature Gran % (Auto) 1.500 H, Neut % (Auto) 78.7 H, Lymph % (Auto) 6.7 L, Woodruff % (Auto) 11.4 H, Eos % (Auto) 1.3, Baso % (Auto) 0.4, Absolute Neuts (auto) 11.3 H, Absolute Lymphs (auto) 0.97, Nucleated RBC % 0, Sodium 139, Potassium 4.0, Chloride 110 H, Carbon Dioxide 24.0, Anion Gap 5, BUN 21 H, Creatinine 1.07, Estim Creat Clear Calc 51.17, Est GFR (MDRD) Af Amer 84, Est GFR (MDRD) Non-Af 70, BUN/Creatinine Ratio 19.6, Glucose 106, Calcium 8.6, Total Bilirubin 0.90, AST 57 H, ALT 25, Alkaline Phosphatase 59, Total Protein 5.5 L, Albumin 2.5 L, Globulin 3.0, Albumin/Globulin Ratio 0.8 L Micro: Microbiology 01/03/24 08:00 Nasal Secretion SARS-CoV-2 Antigen (Rapid) - Final 01/03/24 08:00 Urine Catheter - Catheter Legionella Antigen - Final 01/03/24 08:00 Urine Catheter - Catheter Streptococcus pneumoniae Antigen (M - Final 01/02/24 23:30 Mucosa - Nasopharyngeal Respiratory Panel (PCR) - Final 12/27/23 10:35 Swab (Method) Nasal Screen MRSA/MSSA - Final Radiography Diagnostic Testing: Radiology Impression Chest CTA 03/21/24 08:09 IMPRESSION: No evidence of pulmonary embolism. Mild alveolar and nodular opacities particularly in the left lower and right upper lobes, concerning for pneumonia or pneumonitis. Consider follow-up to resolution. Electronically Signed: Nathalie Lala MD at 9:39 EDT , Physical Exam Const alert and no apparent distress Constitutional Narrative: Sitting in bedside recliner. General Appearance: cooperative HEENT normocephalic and head/scalp atraumatic Eyes PERRL, EOMs intact bilaterally and conjunctivae normal Neck supple General: trachea midline Chest inspection of chest normal Resp normal respiratory effort Auscultation: Negative for rales, rhonchi or wheezes Cardio regular rate and regular rhythm GI soft to palpation Extremity no clubbing, cyanosis or edema Skin no rashes or lesions noted Neuro oriented x3, CN's II-XII intact bilaterally and moves all extremities Psych cooperative and affect normal Charges/Coding Visit Charges Inpatient E&M: 29915 Subs Hosp L2
[2024-01-04 10:36] LABS: Differential Comment SCANNED
--- NOTE | 2024-01-04 11:04 | PCM.RX.CS ---
Consult Antibiotic Management Pharmacy has been consulted to manage selected antibiotic: Vancomycin Type of Intervention Type of Consult: Follow-up Suspected Infection Suspected Infection: Sepsis Prior Doses of Antibiotics Prior Doses of Antibiotics Received/Current Regimen: Vancomycin 500 mg IV given 01/02 @ 0923, and 01/02 @ 0638 Labs Labs: Sodium 139 mmol/L (136-145) 01/04/24 07:35 Potassium 4.0 mmol/L (3.5-5.1) 01/04/24 07:35 Chloride 110 mmol/L (98-107) H 01/04/24 07:35 Carbon Dioxide 24.0 mmol/L (21.0-32.0) 01/04/24 07:35 Anion Gap 5 (5-15) 01/04/24 07:35 BUN 21 mg/dL (7-18) H 01/04/24 07:35 Creatinine 1.07 mg/dL (0.70-1.30) 01/04/24 07:35 Est GFR (MDRD) Af Amer 84 mL/min (>60) 01/04/24 07:35 Est GFR (MDRD) Non-Af 70 mL/min (>60) 01/04/24 07:35 BUN/Creatinine Ratio 19.6 RATIO (10-20) 01/04/24 07:35 Glucose 106 mg/dL (74-106) 01/04/24 07:35 Vancomycin Trough 13.0 ug/mL (5.0-15.0) 01/04/24 09:30 Microbiology Microbiology: Microbiology 01/03/24 08:00 Nasal Secretion SARS-CoV-2 Antigen (Rapid) - Final 01/03/24 08:00 Urine Catheter - Catheter Legionella Antigen - Final 01/03/24 08:00 Urine Catheter - Catheter Streptococcus pneumoniae Antigen (M - Final 01/02/24 23:30 Mucosa - Nasopharyngeal Respiratory Panel (PCR) - Final 12/27/23 10:35 Swab (Method) Nasal Screen MRSA/MSSA - Final Dosing Weight Weight used for dosin kg Estimated Creatinine Clearance Estimated Creatinine Clearance: ~51 Goal Trough Goal Trough: 15-20 mcg/mL Pharmacy Plan for Drug Dosing Pharmacy Plan for Drug Dosing: Vancomycin trough drawn 10.5 hours after last dose started was 13.0, will increase to 750 mg q12h, trough prior to 4th dose. Pharmacy Service will continue to monitor and adjust dosing as required. Follow-Up Labs Follow-Up Labs: Trough: Vancomycin Date/Time Labs Ordered Labs to be done on [date and time ordered]: 01/04 @ 1503
[2024-01-04] MEDS: Vancomycin HCl 750 MG in 0.9% Normal Saline (250mL Bag) 250 ML 250 MG IV (11:29)
--- NOTE | 2024-01-04 14:23 | CHAPLAIN ---
Type of Pastoral Visit _x__ Initial Visit ___ Follow-up Visit ___ On-call Visit ___ General Patient Visit ___ Spiritual Assessment ___ Family Conference ___ Bereavement ___ Rapid Response ___ Code Blue ___ Other (describe below) Pastoral Care Referral From _x__ Patient ___ Family ___ Nurse ___ Physician ___ Delivery Stock Clerk ___ Puller Through ___ Other (describe below) Sacrament/Intervention _x__ Active listening ___ Anointing ___ Amish _x__ Bereavement ___ Communion _x__ Kimberly exploration ___ _x__ Life review _x__ Prayer ___ Reconciliation ___ Sacrament of Sick _x__ Supportive presence ___ Wedding ___ Other (describe below) Pastoral Comments patient is asked about his coping and his grief; pt talks about the process of his 's last weeks and her ; pt admits to loneliness and sorrow with this loss; pt has three sons and they live in all different areas; one son does a lot of work and assistance for the patient; pt is connected to a kimberly community and finds help in his kimberly in God; pt is expressive of the support given for his processing of grief and his information receptionist of prayer and presence
--- NOTE | 2024-01-04 16:17 | CASEMGMT ---
Social Work SW met with pt and son to validate advance directives. Pt's son brought in HCPOA naming son Diego Ortega as decision maker. Pt has not completed a living will and is not interested at this time as he has a HCPOA and a DNR CCA, no intubation. HCPOA is on pt's chart. JOSEFINA Watson
--- NOTE | 2024-01-04 16:19 | CASEMGMT ---
Social Work SW received referral from physician that pt's in October and pt is tearful while sharing about this. SW met with pt and son and introduced self and role of SW. SW provided pt with written information on [facility]'s grief counseling program. Pt accepting of information and support. JOSEFINA Watson
--- NOTE | 2024-01-04 16:44 | DCINST_ITS ---
Discharge Instructions Diet Discharge Diet: No restrictions Activity May shower in (days): 0 Ice area for (Minutes): 20 Dressing / Incision Call your doctor if your incision/area has: Continuous Slow Oozing, Increased Pain/ Swelling, Increased Redness, Foul Smelling Discharge and Swelling at the incision site Call your doctor if you observe: Fever of 101 or Higher, Inability to urinate, Inability to have a bowel movement and Shortness of breath Cleanse incision/area with: Soap & Water and Keep Dressing Clean & Dry Follow Up Care Please Follow Up With: Bob Neal MD When: 1 week postop Test Results: Test results from this visit will be discussed in further detail at your follow- up appointment, if applicable. Discharge Plan Admission Admit Date/Time: 01/03/24 14:44 Primary Reason for Your Visit: Left inguinal hernia repair Attending Provider: Bob Neal Primary Care Provider: Ulices Mueller Consulting Providers: Nick Morales; Jean-Paul Patel Discharge Orders/Prescriptions Prescriptions: New levofloxacin 750 mg tablet 750 mg PO Q24H Qty: 4 0RF Continued Eliquis 5 mg tablet 5 mg PO BID mecobalamin (vitamin B12) 1,000 mcg tablet,chewable 1,000 mcg PO DAILY cholecalciferol (vitamin D3) 50 mcg (2,000 unit) capsule 50 mcg PO DAILY docusate sodium 100 mg capsule 100 mg PO BID omeprazole 20 mg capsule,delayed release(DR/EC) 20 mg PO BID gabapentin 400 mg capsule 400 mg PO BID tramadol 50 mg tablet 50 mg PO Q6H PRN (Reason: pain) hydrocodone-acetaminophen 5-325 mg tablet 1 tab PO Q6H PRN (Reason: pain) atorvastatin 80 mg tablet 80 mg PO DAILY melatonin 3 mg capsule 9 mg PO HS PRN (Reason: sleep) tamsulosin 0.4 mg capsule 0.4 mg PO BID ezetimibe 10 mg tablet 10 mg PO DAILY metoprolol tartrate 50 mg tablet 50 mg PO BID ferrous sulfate 325 mg (65 mg iron) tablet 325 mg PO DAILY Qty: 90 1RF mupirocin 2 % ointment 1 applic topical BID 7 Days Qty: 15 0RF Rx Instructions: apply to bilateral nares wiht q-tip Referrals / Follow Up: Oleghe,Efewongbe, MD [Primary Care Provider] - Disposition Disposition (needs filled in before D/C Order can be placed): Home, Self Care
--- NOTE | 2024-01-04 16:50 | DS.PCM_ITS ---
Providers Date of Admission: 01/03/24 Primary Care Physician: Dr. Ulices Mueller MD Consultations 01/02/24 18:41 Consult: Hospitalist Routine Consulting Provider: Nick Morales Reason for Consult: Acute clinical status change periop EMERGENT Consult: Yes Notified: Yes Date Notified: 01/02/24 Time Notified: 18:41 Method of Notification: Verbal 01/02/24 21:32 Consult: Water Softener Installer / Pulmonary Medicine Routine Consulting Provider: Intensivists/Pulmonary Med Reason for Consult: acute hypoxia, concern for sepsis with unclear source EMERGENT Consult: No Notified: Yes Date Notified: 01/02/24 Time Notified: 21:32 Method of Notification: Text Reason For Visit: Hernia, Open Inguinal w/ Mesh Diagnosis Discharge Diagnosis (1) Postoperative nausea and vomiting: Status: Acute Code(s): R11.2 - Nausea with vomiting, unspecified; Z98.890 - Other specified postprocedural states (2) Hypoxia: Status: Acute Code(s): R09.02 - Hypoxemia Plan Patient is postoperative day 1 from left inguinal hernia repair performed via Nhan approach under MAC who developed postoperative fever, tachycardia, hypertension, and lactic acidosis. The above was concerning for medication khloe ction versus developing infection. Suspicion for medication reaction was merely temporal as patient did not have any inhalational anesthetics or muscle relaxants. Patient's labs presently trending favorably and lactic acidosis was transient. Patient did have significant leukocytosis this morning that appears to already be downtrending as well in response to empiric antibiotic therapy. CT linda scan of chest abdomen pelvis excluded pulmonary embolism but suggested possible pneumonia. Nursing reports that patient has had some secretions but has not required supplemental oxygen to maintain saturations. Appreciate the assistance of the ICU and hospitalist service with patient's workup. Will plan to continue empiric antibiotic therapy and follow-up blood cultures. If all other testing remains negative we will plan to treat empirically for pneumonia. Patient had repeatedly been asked if he had felt any sort of sickness preoperatively and he stated no, however, after asked more directly today he suggest that he has been coughing off and on for the last 2 to 3 days. Medications at Discharge Home Medications apixaban 5 mg tablet (Eliquis) 5 mg PO BID 08/31/22 atorvastatin 80 mg tablet 80 mg PO DAILY 08/31/22 cholecalciferol (vitamin D3) 50 mcg (2,000 unit) capsule 50 mcg PO DAILY 08/31/22 docusate sodium 100 mg capsule 100 mg PO BID 08/31/22 ezetimibe 10 mg tablet 10 mg PO DAILY 08/31/22 gabapentin 400 mg capsule 400 mg PO BID 08/31/22 hydrocodone-acetaminophen 5-325mg 5mg-325mg 1 tab PO Q6H PRN pain 08/31/22 mecobalamin (vitamin B12) 1,000 mcg chewable tablet 1,000 mcg PO DAILY 08/31/22 melatonin 3 mg capsule 9 mg PO HS PRN sleep 08/31/22 metoprolol tartrate 50 mg tablet 50 mg PO BID 08/31/22 omeprazole 20 mg capsule,delayed release 20 mg PO BID 08/31/22 tamsulosin 0.4 mg capsule 0.4 mg PO BID 08/31/22 tramadol 50 mg tablet 50 mg PO Q6H PRN pain 08/31/22 ferrous sulfate 325 mg (65 mg iron) tablet 325 mg PO DAILY #90 tabs 09/19/22 mupirocin 2 % topical ointment 1 applic topical BID 1 week #15 grams 12/31/23 levofloxacin 750 mg tablet 750 mg PO Q24H #4 tabs 01/04/24 Hospital Course Operations - (Left open inguinal hernia repair with mesh) Procedures EKG Summary of Care Provided Hospital Course: Patient is an 88-year-old male who underwent an uncomplicated left open inguinal hernia repair with mesh placement via MAC anesthetic on 01/02/2024. Postoperatively he exhibited profound tachycardia, hyperthermia, and relative hypoxia. This was concerning for either a adverse medication effect versus septic response. Stat laboratories were obtained and showed initial lactic acidosis with mild leukocytosis and given patient's tenuous hemodynamic status he was placed in the intensive care unit for monitoring with broad-spectrum empiric antibiotic therapy. Stat consult had also been placed to hospitalist service and the textile colorist dyer. Postoperative day 1 patient exhibited profound leukocytosis of greater than 29,000, yet clinically he appeared much improved. Linda scanning with CT of the chest abdomen and pelvis was performed to include a ssessment for possible pulmonary embolus. This study simply showed changes consistent with possible developing pneumonia and postoperative state in the left groin extending into the left inguinal canal but no evidence of pulmonary embolus or intraperitoneal concern. When pressed for any information related to a developing infection, Mr. Ortega admitted that he had experienced a cough for a couple of days prior to his operation. He was thus managed expectantly for another day and continued with clinical improvement. He was advanced to a regular diet and remained stable from both a hemodynamic and respiratory status standpoint. While we discussed potentially delaying discharge until blood and respiratory cultures were completed, the upcoming weekend put the timeliness of result reporting and Mr. Ortega strongly requested discharge to home. Given his substantial clinical improvement this request was granted after first confirming with hospitalist and textile colorist dyer services. He is discharged with empiric antibiotic therapy and instructions to follow-up in the next week with our surgery clinic as an outpatient. Additionally strict return precautions were provided. Physical Exam Const alert, oriented x3 and no apparent distress Resp normal respiratory effort Narrative: Stable surgical site in left groin with minimal tenderness to palpation. No significant redness or swelling. Weight / BMI Weight Weight: 178 lb 9.6 oz Body Mass Index (BMI) 25.5 ABG / Lab / Microbiology Data 01/04/24 07:35 01/04/24 07:35 Laboratory: Laboratory Results - last 24 hr 01/03/24 05:00: Diff Path Review Reviewed 01/04/24 07:35: WBC 14.4 H, RBC 4.19 L, Hgb 11.2 L, Hct 35.9 L, MCV 85.7, MCH 26.7 L, MCHC 31.2 L, RDW Std Deviation 46.8 H, RDW Coeff of José Miguel 14.9 H, Plt Count 136 L, MPV 10.2, Immature Gran % (Auto) 1.500 H, Neut % (Auto) 78.7 H, Lymph % (Auto) 6.7 L, [place] % (Auto) 11.4 H, Eos % (Auto) 1.3, Baso % (Auto) 0.4, Absolute Neuts (auto) 11.3 H, Absolute Lymphs (auto) 0.97, Nucleated RBC % 0, Differential Comment SCANNED, Diff Path Review February, Sodium 139, Potassium 4.0, Chloride 110 H, Carbon Dioxide 24.0, Anion Gap 5, BUN 21 H, Creatinine 1.07, Estim Creat Clear Calc 51.17, Est GFR (MDRD) Af Amer 84, Est GFR (MDRD) Non-Af 70, BUN/Creatinine Ratio 19.6, Glucose 106, Calcium 8.6, Total Bilirubin 0.90, AST 57 H, ALT 25, Alkaline Phosphatase 59, Total Protein 5.5 L, Albumin 2.5 L, Globulin 3.0, Albumin/Globulin Ratio 0.8 L 01/04/24 09:30: Vancomycin Trough 13.0 Microbiology: Microbiology 01/04/24 08:20 Sputum, Expectorated/Coughed Gram Stain - Final 01/03/24 08:00 Nasal Secretion SARS-CoV-2 Antigen (Rapid) - Final 01/03/24 08:00 Urine Catheter - Catheter Legionella Antigen - Final 01/03/24 08:00 Urine Catheter - Catheter Streptococcus pneumoniae Antigen (M - Final 01/02/24 23:30 Mucosa - Nasopharyngeal Respiratory Panel (PCR) - Final 12/27/23 10:35 Swab (Method) Nasal Screen MRSA/MSSA - Final D/C Instructions Discharge Diet: No restrictions May shower in (days): 0 Ice area for (Minutes): 20 Call your doctor if your incision/area has: Continuous Slow Oozing, Increased Pain/ Swelling, Increased Redness, Foul Smelling Discharge and Swelling at the incision site Call your doctor if you observe: Fever of 101 or Higher, Inability to urinate, Inability to have a bowel movement and Shortness of breath Cleanse incision/area with: Soap & Water and Keep Dressing Clean & Dry Please Follow Up With: Bob Neal MD When: 1 week postop Meaningful Use Info Meaningful Use Diagnoses (Choose all that apply): None applicable Discharge Plan Admission Admit Date/Time: 01/03/24 14:44 Primary Reason for Your Visit: Left inguinal hernia repair Attending Provider: Bob Neal Primary Care Provider: Ulices Mueller Consulting Providers: Nick Morales; Jean-Paul Patel Discharge Orders/Prescriptions Prescriptions: New levofloxacin 750 mg tablet 750 mg PO Q24H Qty: 4 0RF Continued Eliquis 5 mg tablet 5 mg PO BID mecobalamin (vitamin B12) 1,000 mcg tablet,chewable 1,000 mcg PO DAILY cholecalciferol (vitamin D3) 50 mcg (2,000 unit) capsule 50 mcg PO DAILY docusate sodium 100 mg capsule 100 mg PO BID omeprazole 20 mg capsule,delayed release(DR/EC) 20 mg PO BID gabapentin 400 mg capsule 400 mg PO BID tramadol 50 mg tablet 50 mg PO Q6H PRN (Reason: pain) hydrocodone-acetaminophen 5-325 mg tablet 1 tab PO Q6H PRN (Reason: pain) atorvastatin 80 mg tablet 80 mg PO DAILY melatonin 3 mg capsule 9 mg PO HS PRN (Reason: sleep) tamsulosin 0.4 mg capsule 0.4 mg PO BID ezetimibe 10 mg tablet 10 mg PO DAILY metoprolol tartrate 50 mg tablet 50 mg PO BID ferrous sulfate 325 mg (65 mg iron) tablet 325 mg PO DAILY Qty: 90 1RF mupirocin 2 % ointment 1 applic topical BID 7 Days Qty: 15 0RF Rx Instructions: apply to bilateral nares wiht q-tip Referrals / Follow Up: Ulices Mueller MD [Primary Care Provider] - Disposition Disposition (needs filled in before D/C Order can be placed): Home, Self Care Charges/Coding Visit Charges Inpatient E&M: 42026 Disch Hosp
[2024-01-07 09:40] LABS: Pathologist Review Reviewed
[2024-01-08 09:23] LABS: Pathologist Review Reviewed
== END 2024-01-04 17:26 | disposition home or self-care (01) | DRG 853 ==
LOC: SDC 17:46 → ICU 18:50 → MS3 01-03 16:55
PROVIDERS: Family Medicine; Hospitalist; Physician Assistant; Admitting Provider Surgery; PCP Internal Medicine; Referring Provider Surgery; Visit Provider Surgery
PROC: 0YU60JZ Supplement Left Inguinal Region with Synthetic Substitute, Open Approach (ICD-10-PCS; principal; 2024-01-02 13:45)
DX: A41.9 Sepsis, unspecified organism (principal); J18.9 Pneumonia, unspecified organism; N13.8 Other obstructive and reflux uropathy; I48.91 Unspecified atrial fibrillation; G62.9 Polyneuropathy, unspecified; D17.1 Benign lipomatous neoplasm of skin and subcutaneous tissue of trunk; I10 Essential (primary) hypertension; I35.0 Nonrheumatic aortic (valve) stenosis; K43.2 Incisional hernia without obstruction or gangrene; E78.5 Hyperlipidemia, unspecified; K21.9 Gastro-esophageal reflux disease without esophagitis; I25.10 Atherosclerotic heart disease of native coronary artery without angina pectoris; I25.2 Old myocardial infarction; R09.02 Hypoxemia; R73.03 Prediabetes; N40.1 Benign prostatic hyperplasia with lower urinary tract symptoms; G47.00 Insomnia, unspecified; Z11.52 Encounter for screening for COVID-19; Z79.01 Long term (current) use of anticoagulants; Z79.899 Other long term (current) drug therapy; Z87.891 Personal history of nicotine dependence; Z90.3 Acquired absence of stomach [part of]; Z95.1 Presence of aortocoronary bypass graft
CPT/HCPCS: 36415; 51702; 71045; 71275; 74177; 80048; 80053; 80202; 81001; 83036; 83605; 85025; 87040; 87070; 87077; 87081; 87086; 87205; 87426; 87449; 87633; 88302; 88304; 93005; 94640; 94668; 97802; J7030; J7040; J7050; J7120; Q9967; A4216; C1781; J2405